=== PATIENT | female | born 1995 | race Caucasian/White ===

== ENCOUNTER 2018-10-23 00:32 | Emergency (ER) | payer OTHER ==
[~2018-10-23] VITALS: Ht 166.4 cm; Wt 158.8 kg
[~2018-10-23 00:32] MED LIST: OSLT75C PO
--- NOTE | 2018-10-23 00:59 | ED Cough/URI ---
General Chief Complaint: Respiratory Problems Stated Complaint: COUGH-HARD TO BREATHE Nursing Triage Note: COUGH X3 DAYS STARTING TO WHEEZE LAST NIGHT. Sepsis Screen: No Definite Risk History of Present Illness Date Seen by Provider: Oct 23, 2018 Time Seen by Provider: 00:59 Initial Comments Patient is a 23-year-old female who presents to the emergency department today complaining of loss of voice and a cough. She has been ill over the last 2-3 days. She complains of a persistent dry hacking cough. She does have a prior history of asthma and has been using her inhaler but this has not been relieving her cough symptoms. No fevers or chills. No upper airway congestion. She also lost her voice and complains of hoarseness. No swelling in the back of the throat. Mild sore throat but this is not a predominant symptom. Allergies and Home Medications Allergies Coded Allergies: strawberry (Unverified Allergy, Mild, 10/23/18) latex (Verified Allergy, Unknown, RASH, 10/23/18) Home Medications Azithromycin 250 Mg Tablet, 250 MG PO DAILY Prescribed by: LINDSAY ROA on 10/23/18 010 Hydrocodone/Acetaminophen 10 Ml Solution, 5 ML PO Q4H PRN for COUGH Prescribed by: LINDSAY ROA on 10/23/18 010 Oseltamivir Phosphate 75 Mg Capsule, 1 CAP PO BID Prescribed by: SARAH CLINE on 04/16/09 0112 Prednisone 50 Mg Tab, 50 MG PO DAILY Prescribed by: LINDSAY ROA on 10/23/18 010 Patient Home Medication List Home Medication List Reviewed: Yes Review of Systems Review of Systems Constitutional: see HPI EENTM: see HPI Respiratory: see HPI Cardiovascular: no symptoms reported Genitourinary: no symptoms reported Musculoskeletal: no symptoms reported Skin: no symptoms reported Hematologic/Lymphatic: No Symptoms Reported All Other Systems Reviewed Negative Unless Noted: Yes Past Gjmbrul-Wouikz-Iipviv Hx Patient Social History Recent Foreign Travel: No Contact w/Someone Who Travel: No Recent Infectious Disease Expo: No Physical Abuse: No Sexual Abuse: No Mistreated: No Fear: No Past Medical History : No Physical Exam Vital Signs - First Documented 10/23/18 00:50 Temp 98.0 Pulse 96 Resp 20 B/P (MAP) 129/79 (96) Pulse Ox 100 O2 Delivery Room Air Capillary Refill : Less Than 3 Seconds Height: 5'5.50" Weight: 350lbs. oz. 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 Skin: normal color Progress/Results/Core Measures Suspected Sepsis Recent Fever Within 48 Hours: No Infection Criteria Present: None New/Unexplained Altered Menta: No Sepsis Screen: No Definite Risk SIRS Temperature:98.0 Pulse: 96 Respiratory Rate: 20 Blood Pressure 129 /79 Mean: 96 Results/Orders My Orders Orders - LINDSAY ROA DO Azithromycin Tablet (Zithromax Tablet) (10/23/18 01:00) Prednisone Tablet (Deltasone Tablet) (10/23/18 01:00) Hydrocodone/Apap 5/325 Tablet (Lortab 5 (10/23/18 01:00) Medications Given in ED Current Medications Medications Dose Ordered Sig/Lisset Route Start Time Stop Time Status Last Admin Dose Admin Acetaminophen/ Hydrocodone Bitart 1 tab ONCE ONCE PO 10/23/18 01:00 10/23/18 01:01 DC 10/23/18 01:13 1 TAB Azithromycin 500 mg ONCE ONCE PO 10/23/18 01:00 10/23/18 01:01 DC 10/23/18 01:13 500 MG Prednisone 50 mg ONCE ONCE PO 10/23/18 01:00 10/23/18 01:01 DC 10/23/18 01:13 50 MG Vital Signs/I&O 10/23/18 00:50 Temp 98.0 Pulse 96 Resp 20 B/P (MAP) 129/79 (96) Pulse Ox 100 O2 Delivery Room Air Capillary Refill : Less Than 3 Seconds Blood Pressure Mean: 96 Progress Note : Time: 01:00 Progress Note Patient was evaluated in the emergency department for a cough. She did have very tight sounding cough when she was coughing. She was not producing sputum. No fevers or chills. The respiratory examination was negative. She does have a history of asthma but her lungs were perfectly clear with good air movement and no increased work of breathing. In the ER, patient was given the first dose of a Z-Isaac, prednisone, and one [place]. She was discharged home with some hydrocodone elixir to use at home for her cough. She will complete the Z-Isaac over the next 4 days and is placed on prednisone for 4 days as well. She does have an albuterol inhaler at home which she states she has plenty of and does not need a refill. She was encouraged to follow up with her primary care doctor or come back to the ER for any new or worsening symptoms. Departure Impression Primary Impression: Bronchitis Additional Impression: Laryngitis Disposition: HOME, SELF-CARE Condition: Improved Departure-Patient Inst. Referrals: NO,LOCAL PHYSICIAN (PCP) Primary Care Physician Scripts Hydrocodone/Acetaminophen (Hydrocodone-Acetamin 5-217/10 ML) 10 Ml Solution 5 ML PO Q4H PRN for COUGH, #120 ML Prov: LINDSAY ROA DO 10/23/18 Azithromycin (Azithromycin) 250 Mg Tablet 250 MG PO DAILY, #4 TAB 0 Refills Prov: LINDSAY ROA DO 10/23/18 Prednisone (Prednisone) 50 Mg Tab 50 MG PO DAILY for 4 Days, #4 TAB Prov: LINDSAY ROA DO 10/23/18 LINDSAY ROA DO Oct 23, 2018 00:59
[2018-10-23] MEDS ORDERED: HYDROcodone/APAP 5 MG/325 MG (LORTAB) TAB PO ONE (01:00)
[2018-10-23] MEDS ORDERED: AZITHROMYCIN 250 MG TAB (ZITHROMAX) PO ONE (01:00)
[2018-10-23] MEDS ORDERED: predniSONE 20 MG TAB PO ONE (01:00)
[2018-10-23] MEDS ORDERED: PRD50T PO (01:05)
[2018-10-23] MEDS ORDERED: AZIT250T12 PO (01:05)
[2018-10-23] MEDS ORDERED: HYDR10SO4 PO (01:06)
[2018-10-23 01:40] VITALS: BP 148/72
== END 2018-10-23 01:40 | disposition home or self-care (01) ==
LOC: EDUNIT# 00:32 → ER FS 00:37
DX: J04.0 Acute laryngitis (principal); J45.909 Unspecified asthma, uncomplicated; Z91.040 Latex allergy status; Z79.52 Long term (current) use of systemic steroids
CPT/HCPCS: 99283

== ENCOUNTER 2019-03-09 23:12 | Emergency (ER) | payer SELFPAY ==
[~2019-03-09] VITALS: Ht 165.1 cm; Wt 145.1 kg
[~2019-03-09 23:12] MED LIST changes: +AZIT250T12 PO; +HYDR10SO4 PO; +PRD50T PO
[2019-03-09] MEDS ORDERED: METOCLOPRAMIDE 10 MG (REGLAN) TAB PO ONE (23:30)
--- NOTE | 2019-03-09 23:37 | ED General ---
General Chief Complaint: Abdominal/GI Problems Stated Complaint: VOMITING, FATIGUED Source of Information: Patient, Family (father) History of Present Illness Date Seen by Provider: Mar 09, 2019 Time Seen by Provider: 23:20 Initial Comments The patient is a morbidly obese pleasant 23-year-old female who presents for evaluation of nausea and vomiting over the last 3 or 4 days. She states that her last menstrual period was on January 21 making her approximately 17 days late. She states there is a chance that she is . She denies any diarrhea, abdominal or back pain, pelvic pain/bleeding/discharge, urinary symptoms, hematemesis, rectal bleeding, chest pain or shortness of breath, dizziness or syncope. She is alert and oriented 4, calm, appears to be in no distress. She has not been previously. Timing/Duration: 3-4 Days Severity: Mild Associated Systoms: Nausea/Vomiting Allergies and Home Medications Allergies Coded Allergies: strawberry (Unverified Allergy, Mild, 10/23/18) latex (Verified Allergy, Unknown, RASH, 10/23/18) Home Medications Azithromycin 250 Mg Tablet, 250 MG PO DAILY Prescribed by: LINDSAY ROA on 10/23/18 010 Hydrocodone/Acetaminophen 10 Ml Solution, 5 ML PO Q4H PRN for COUGH Prescribed by: LINDSAY ROA on 10/23/18 010 Oseltamivir Phosphate 75 Mg Capsule, 1 CAP PO BID Prescribed by: SARAH CLINE on 04/16/09 0112 Prednisone 50 Mg Tab, 50 MG PO DAILY Prescribed by: LINDSAY ROA on 10/23/18 010 Patient Home Medication List Home Medication List Reviewed: Yes Review of Systems Review of Systems Constitutional: no symptoms reported EENTM: no symptoms reported Respiratory: no symptoms reported Cardiovascular: no symptoms reported Gastrointestinal: nausea, vomiting Genitourinary: no symptoms reported Musculoskeletal: no symptoms reported Skin: no symptoms reported Psychiatric/Neurological: No Symptoms Reported Hematologic/Lymphatic: No Symptoms Reported Immunological/Allergic: no symptoms reported All Other Systems Reviewed Negative Unless Noted: Yes Past Wzrcisk-Bkkors-Ewiexe Hx Past Med/Social Hx: Reviewed Nursing Past Med/Soc Hx Patient Social History 2nd Hand Smoke Exposure: No Recent Foreign Travel: No Contact w/Someone Who Travel: No Recent Hopitalizations: No Immunizations Up To Date Tetanus Booster (TDap): Unknown Past Medical History Surgeries: Yes (WISDOM TEETH REMOVAL) Gallbladder Respiratory: Yes Asthma Cardiac: No Neurological: No Genitourinary: No Gastrointestinal: No Musculoskeletal: No Endocrine: No HEENT: No Cancer: No Psychosocial: No Blood Disorders: No Physical Exam Vital Signs Vital Signs - First Documented 03/09/19 23:13 Temp 97.6 Pulse 88 Resp 18 B/P (MAP) 142/78 (99) Pulse Ox 99 O2 Delivery Room Air Capillary Refill : Height, Weight, BMI Height: 5'5.50" Weight: 350lbs. oz. 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 II-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 Norm as Tested Skin: Normal Color, Warm/Dry Progress/Results/Core Measures Suspected Sepsis SIRS Temperature: Pulse: Respiratory Rate: Blood Pressure / Mean: Results/Orders Lab Results Laboratory Tests Test 03/09/19 23:47 Range/Units Urine Color YELLOW Urine Clarity SLT CLOUDY Urine pH 6.0 5-9 Urine Specific Dorsey 1.020 1.016-1.022 Urine Protein NEGATIVE NEGATIVE Urine Glucose (UA) NEGATIVE NEGATIVE Urine Ketones NEGATIVE NEGATIVE Urine Nitrite NEGATIVE NEGATIVE Urine Bilirubin NEGATIVE NEGATIVE Urine Urobilinogen 1.0 NORMAL MG/DL Urine Leukocyte Esterase 3+ H NEGATIVE Urine RBC (Auto) TRACE H NEGATIVE Urine RBC 0-2 /HPF Urine WBC 50-100 H /HPF Urine Squamous Epithelial Cells 2-5 /HPF Urine Crystals NONE /LPF Urine Bacteria MODERATE H /HPF Urine Casts NONE /LPF Urine Mucus NONE /LPF Urine Trichomonas FEW H /HPF Urine Culture Indicated YES Urine Test NEGATIVE NEGATIVE My Orders Orders - NASH ALVAREZ DO Ua Culture If Indicated (03/09/19 23:14) Hcg,Qualitative Urine (03/09/19 23:14) Metoclopramide Tablet (Reglan Tablet) (03/09/19 23:30) Urine Culture (03/09/19 23:47) Vital Signs/I&O 03/09/19 23:13 Temp 97.6 Pulse 88 Resp 18 B/P (MAP) 142/78 (99) Pulse Ox 99 O2 Delivery Room Air Capillary Refill : Progress Note : Progress Note @0014 - Patient updated on urinalysis results which show an acute UTI as well as Trichomonas. The patient will be sent home with a prescription for Bactrim and will be given 2 g of Flagyl here. Advised the patient to follow up with her PCP in the next 2-3 days and to return for new or worsening symptoms. The patient expresses verbal understanding and agreement with the plan and is stable for discharge. Departure Impression Primary Impression: Acute UTI Additional Impression: Trichomonas infection Disposition: 01 HOME, SELF-CARE Condition: Stable Departure-Patient Inst. Referrals: MORENITA GAMING MD (PCP) Primary Care Physician Patient Instructions: Urinary Tract Infections in Adults, Trichomoniasis (DC), STD Prevention Add. Discharge Instructions: Take the prescribed medicine as directed. Return to the ER for new or worsening symptoms. Follow-up with your doctor in the next 2-3 days. Scripts Sulfamethoxazole/Trimethoprim (Bactrim Ds Tablet) 1 Each Tablet 1 EACH PO BID for 3 Days, TAB Prov: NASH ALVAREZ DO 03/10/19 NASH ALVAREZ DO Mar 09, 2019 23:37
[2019-03-10 00:09] LABS: CLARITY,URINE SLT CLOUDY; COLOR,URINE YELLOW; GLUCOSE, URINE (UA) NEGATIVE (NEGATIVE); PROTEIN,URINE NEGATIVE (NEGATIVE)
[2019-03-10 00:10] LABS: BACTERIA,URINE MODERATE /HPF; BILIRUBIN,URINE NEGATIVE (NEGATIVE); KETONES,URINE NEGATIVE (NEGATIVE); LEUKOCYTE ESTERASE ,URINE 3+ (NEGATIVE); NITRITE,URINE NEGATIVE (NEGATIVE); RBC,URINE 0-2 /HPF; WBC,URINE 50-100 /HPF
[2019-03-10 00:11] LABS: TRICHOMONAS,URINE FEW /HPF
[2019-03-10] MEDS ORDERED: SULF1TAB35 PO (00:18)
[2019-03-10] MEDS ORDERED: ONDANSETRON 4 MG (ZOFRAN) ORAL DISSOLVE TAB PO STA (00:19)
[2019-03-10 00:24] VITALS: BP 142/78
[2019-03-10] MEDS ORDERED: TRIM/SULFAMETH 160/800 (SEPTRA DS) TAB PO ONE (00:30)
[2019-03-10] MEDS ORDERED: metroNIDAZOLE 500 MG (FLAGYL) TAB PO ONE (00:30)
--- OUTSIDE RECORDS SUMMARY | 2019-03-10 17:18 | XMS REPORT | Continuity of Care Document ---
Author Organization Unknown Address Unknown Allergies Active Description Code Type Severity Reaction Onset Reported/Identified Relationship to Patient Clinical Status Yes latex [id number] Drug Allergy Unknown RASH 10/23/2018 Yes strawberry [id number] Drug Allergy Mild N/A 10/23/2018 Medications There is no data. 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 10/25/2018 ROA DO LINDSAY L Ot Z91.040 LATEX ALLERGY STATUS 10/29/2018 ROA DO LINDSAY L Ot J04.0 ACUTE LARYNGITIS 10/29/2018 ROA DO LINDSAY L Ot J45.909 UNSPECIFIED ASTHMA, UNCOMPLICATED 10/29/2018 ROA DO LINDSAY L Ot R05 COUGH 10/29/2018 ROA DO LINDSAY L Ot 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 Results Test Result Range Urine beta human chorionic gonadotropin (hCG) measurement - 03/09/19 23:47 Urine beta human chorionic gonadotropin (hCG) measurement NEGATIVE NEGATIVE Complete urinalysis with reflex to culture - 03/09/19 23:47 Urine color determination YELLOW NRG Urine clarity determination SLT CLOUDY NRG Urine pH measurement by test strip 6.0 5-9 Specific gravity of urine by test strip 1.020 1.016-1.022 Urine protein assay by test strip, semi-quantitative NEGATIVE NEGATIVE Urine glucose detection by automated test strip NEGATIVE NEGATIVE Erythrocytes detection in urine sediment by light microscopy TRACE NEGATIVE Urine ketones detection by automated test strip NEGATIVE NEGATIVE Urine nitrite detection by test strip NEGATIVE NEGATIVE Urine total bilirubin detection by test strip NEGATIVE NEGATIVE Urine urobilinogen measurement by automated test strip (mass/volume) 1.0 mg/dL NORMAL Urine leukocyte esterase detection by dipstick 3+ NEGATIVE Automated urine sediment erythrocyte count by microscopy (number/high power field) [HPF] NRG Automated urine sediment leukocyte count by microscopy (number/high power field) [HPF] NRG Bacteria detection in urine sediment by light microscopy MODERATE NRG Squamous epithelial cells detection in urine sediment by light microscopy 2-5 NRG Crystals detection in urine sediment by light microscopy NONE NRG Casts detection in urine sediment by light microscopy NONE NRG Mucus detection in urine sediment by light microscopy NONE NRG Complete urinalysis with reflex to culture YES NRG Urine Trichomonas species detection by light microscopy FEW NRG Encounters ACCT No. Visit Date/Time Discharge Status Pt. Type Provider Facility Loc./Unit Complaint [id number] 10/23/2018 00:37:00 10/23/2018 01:40:00 DIS Outpatient LINDSAY ROA DO [facility] ER FS COUGH-HARD TO BREATHE [id number] 03/09/2019 23:53:00 Document Registration
== END 2019-03-10 00:24 | disposition home or self-care (01) ==
LOC: EDUNIT# 23:12 → ER FS 23:13
DX: A59.09 Other urogenital trichomoniasis (principal); E66.01 Morbid (severe) obesity due to excess calories; J45.909 Unspecified asthma, uncomplicated; Z91.040 Latex allergy status; Z68.43 Body mass index [BMI] 50.0-59.9, adult
CPT/HCPCS: 81000; 84703; 87088; 99283

== ENCOUNTER 2019-04-13 12:17 | Emergency (ER) | payer OTHER ==
[~2019-04-13] VITALS: Ht 167.6 cm; Wt 153.3 kg
[~2019-04-13 12:17] MED LIST changes: +SULF1TAB35 PO
--- NOTE | 2019-04-13 13:16 | ED Lower Extremity ---
General Chief Complaint: Laceration Stated Complaint: RT TOE LAC Nursing Triage Note: PT DROPPED A MIRROR ON HER RIGHT FOOT. LACERATION TO THE ANTERIOR SIDE OF HER RIGHT 5TH TOE. BLEEDING CONTROLLED. Nursing Sepsis Screen: No Definite Risk History of Present Illness Date Seen by Provider: Apr 13, 2019 Time Seen by Provider: 12:55 Initial Comments The patient is a pleasant 23-year-old female who presents for evaluation of a laceration to the right fifth toe. She states that she was moving a mirror when she dropped it and it cut the toe. Upon arrival the bleeding has stopped and the laceration is on the top medial portion of the toe. It does not gape when she walks on it. She has no other injuries or complaints and does not believe that she fractured her toe and does not want imaging. She is up-to-date with tetanus already. She is alert and oriented 4, calm, appears to be in no distress. Onset: just prior to arrival Pain/Injury Location: right 5th toe Method of Injury: direct blow Modifying Factors: Improves With Movement (of toe makes it slightly worse) Allergies and Home Medications Allergies Coded Allergies: strawberry (Unverified Allergy, Mild, 10/23/18) latex (Verified Allergy, Unknown, RASH, 10/23/18) Home Medications Azithromycin 250 Mg Tablet, 250 MG PO DAILY Prescribed by: LINDSAY ROA on 10/23/18104 Hydrocodone/Acetaminophen 10 Ml Solution, 5 ML PO Q4H PRN for COUGH Prescribed by: LINDSAY ROA on 10/23/18105 Oseltamivir Phosphate 75 Mg Capsule, 1 CAP PO BID Prescribed by: SARAH CLINE on 04/16/09 0112 Prednisone 50 Mg Tab, 50 MG PO DAILY Prescribed by: LINDSAY ROA on 10/23/18104 Sulfamethoxazole/Trimethoprim 1 Each Tablet, 1 EACH PO BID Prescribed by: NASH ALVAREZ on 03/10/19 0018 Patient Home Medication List Home Medication List Reviewed: Yes Review of Systems Constitutional: no symptoms reported EENTM: no symptoms reported Respiratory: no symptoms reported Cardiovascular: no symptoms reported Gastrointestinal: no symptoms reported Genitourinary: no symptoms reported : No Musculoskeletal: other (laceration to right fifth toe) Skin: no symptoms reported Psychiatric/Neurological: No Symptoms Reported All Other Systems Reviewed Negative Unless Noted: Yes Past Kuwfrmy-Eybvkf-Xcgvtd Hx Past Med/Social Hx: Reviewed Nursing Past Med/Soc Hx Patient Social History Alcohol Use: Denies Use Recreational Drug Use: No Type Used: Cigarettes 2nd Hand Smoke Exposure: No Recent Foreign Travel: No Contact w/Someone Who Travel: No Recent Infectious Disease Expo: No Recent Hopitalizations: No Physical Abuse: No Sexual Abuse: No Mistreated: No Fear: No Immunizations Up To Date Tetanus Booster (TDap): Unknown Past Medical History Surgeries: Yes (WISDOM TEETH REMOVAL) Gallbladder Respiratory: Yes Asthma Cardiac: No Neurological: No Genitourinary: No Gastrointestinal: No Musculoskeletal: No Endocrine: No HEENT: No Cancer: No Psychosocial: No Blood Disorders: No Physical Exam Vital Signs Vital Signs - First Documented 04/13/19 12:27 Temp 97.4 Pulse 88 Resp 20 B/P (MAP) 150/87 (108) Pulse Ox 98 O2 Delivery Room Air Capillary Refill : Less Than 3 Seconds Height, Weight, BMI Height: 5'6.00" Weight: 338lbs. 0oz. 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 as tested, no motor/sensory deficits, alert, normal mood/affect, oriented x 3 Skin: normal color, warm/dry Lymphatic: no adenopathy Procedures/Interventions Wound Location: Lower Extremities (right 5th toe) Other Wound Location right 5th toe on top/medial aspect Wound Length (cm): 1.5 Wound's Depth, Shape: superficial Wound Explored: clean Irrigated w/ Saline (ccs): 500 Wound Debrided: none Other Closure Supply: Steri Strip 1/4", Wound Adhesive Progress Patient tolerated the repair with skin adhesive and Steri-Strips very well Progress/Results/Core Measures Results/Orders Vital Signs/I&O 04/13/19 12:27 Temp 97.4 Pulse 88 Resp 20 B/P (MAP) 150/87 (108) Pulse Ox 98 O2 Delivery Room Air Blood Pressure Mean: 108 Departure Impression Primary Impression: Laceration of toe of right foot Disposition: 01 HOME, SELF-CARE Condition: Stable Departure-Patient Inst. Decision time for Depature: 13:35 Referrals: MORENITA GAMING MD (PCP/Family) Primary Care Physician Patient Instructions: Laceration Repair With Glue (DC) Add. Discharge Instructions: Follow-up with your doctor in the next 2-3 days for wound check. Return to the ER for new or worsening symptoms. NASH ALVAREZ DO Apr 13, 2019 13:16
[2019-04-13 13:42] VITALS: BP 130/87
== END 2019-04-13 13:42 | disposition home or self-care (01) ==
LOC: EDUNIT# 12:17 → ER FS 12:18
DX: S91.114A Laceration without foreign body of right lesser toe(s) without damage to nail, initial encounter (principal); J45.909 Unspecified asthma, uncomplicated; Z91.040 Latex allergy status; Z79.52 Long term (current) use of systemic steroids; W25.XXXA Contact with sharp glass, initial encounter
CPT/HCPCS: 99282

== ENCOUNTER 2019-04-17 23:55 | Emergency (ER) | payer OTHER ==
[~2019-04-17] VITALS: Ht 166.4 cm; Wt 151.5 kg
[2019-04-18] MEDS ORDERED: KETOROLAC 60 MG/2 ML VIAL IM STA (00:12)
[2019-04-18] MEDS ORDERED: ORPHENADRINE 60 MG/2 ML (NORFLEX) AMP IM STA (00:12)
--- NOTE | 2019-04-18 00:21 | ED Back Pain ---
General Chief Complaint: Back Problems Stated Complaint: BACK PAIN Nursing Triage Note: PT. WAS MOVING FURNITURE AND NOW HER BACK HURTS. PT. STATED SHE HAS A HX OF BACK PAIN. NO NUMBNESS OR TINGLING. Nursing Sepsis Screen: No Definite Risk Source of Information: Patient History of Present Illness Date Seen by Provider: Apr 17, 2019 Time Seen by Provider: 23:57 Initial Comments 23-year-old female presenting with complaints of back pain. She has a history of back pain for the last several years. She cannot remember what originally started her back pain. She states that she was moving a dresser this and has had increased back pain since Wednesday. She has pain radiating down her back into her legs. She denies any numbness or tingling. She has no loss of bowel or bladder control. She has tried acetaminophen and ibuprofen with little to no relief. She follows with Dr. Gaming in the clinic and has seen him about her back pain in the past but has not gone in about this new back pain since it just started Wednesday. She had more pain tonight and was supposed to go to work but could not due to the pain so she came to the ED Allergies and Home Medications Allergies Coded Allergies: strawberry (Unverified Allergy, Mild, 10/23/18) latex (Verified Allergy, Unknown, RASH, 10/23/18) Home Medications Azithromycin 250 Mg Tablet, 250 MG PO DAILY Prescribed by: LINDSAY ROA on 10/23/18104 Baclofen 10 Mg Tablet, 10 MG PO TID PRN for MUSCLE SPASMS Prescribed by: GUY ARREDONDO on 04/18/19206 Hydrocodone Bit/Acetaminophen 1 Tab Tab, 1 EACH PO Q6H PRN for PAIN-MODERATE Prescribed by: GUY ARREDONDO on 04/18/19206 Hydrocodone/Acetaminophen 10 Ml Solution, 5 ML PO Q4H PRN for COUGH Prescribed by: LINDSAY ROA on 10/23/18105 Ibuprofen 800 Mg Tablet, 800 MG PO Q8H PRN for PAIN Prescribed by: GUY ARREDONDO on 04/18/19206 Oseltamivir Phosphate 75 Mg Capsule, 1 CAP PO BID Prescribed by: SARAH CLINE on 04/16/09 011 Prednisone 50 Mg Tab, 50 MG PO DAILY Prescribed by: LINDSAY ROA on 10/23/18104 Sulfamethoxazole/Trimethoprim 1 Each Tablet, 1 EACH PO BID Prescribed by: NASH ALVAREZ on 03/10/19 0018 Patient Home Medication List Home Medication List Reviewed: Yes Review of Systems Constitutional: No chills, No fever, No malaise EENTM: no symptoms reported Respiratory: no symptoms reported Cardiovascular: no symptoms reported Gastrointestinal: no symptoms reported Genitourinary: other (LMP was in January but has had negative test at home.) Musculoskeletal: see HPI, back pain; No muscle weakness Skin: no symptoms reported Psychiatric/Neurological: Denies Numbness, Denies Paresthesia Past Mteyonx-Xvkbpj-Xkpdfk Hx Past Med/Social Hx: Reviewed Nursing Past Med/Soc Hx Patient Social History Type Used: Cigarettes 2nd Hand Smoke Exposure: No Recent Foreign Travel: No Contact w/Someone Who Travel: No Recent Infectious Disease Expo: No Recent Hopitalizations: No Immunizations Up To Date Tetanus Booster (TDap): Unknown Past Medical History Surgeries: Yes (WISDOM TEETH REMOVAL) Gallbladder Respiratory: Yes Asthma Cardiac: No Neurological: No Genitourinary: No Gastrointestinal: No Musculoskeletal: No Endocrine: No HEENT: No Cancer: No Psychosocial: No Blood Disorders: No Physical Exam Vital Signs Vital Signs - First Documented 04/18/19 00:07 Temp 97.9 Pulse 90 Resp 16 B/P (MAP) 117/72 (87) Pulse Ox 100 O2 Delivery Room Air Capillary Refill : Less Than 3 Seconds Height, Weight, BMI Height: 5'5.50" Weight: 334lbs. 0oz. 151.292168np; BMI Method:Stated General Appearance: No Apparent Distress, WD/WN HEENT: PERRL/EOMI, Normal ENT Inspection, Pharynx Normal Neck: Normal Inspection, Non Tender, Supple Cardiovascular: Regular Rate, Rhythm, Normal Peripheral Pulses Respiratory: Chest Non Tender, Lungs Clear, Normal Breath Sounds, No Accessory Muscle Use, No Respiratory Distress Back: Decreased Range of Motion, Muscle Spasm, Vertebral Tenderness (lower thoracic and lumbar spine), Other (pain with SLR bilaterally worse on right. 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; No Abnormal Gait Skin: Normal Color, Warm/Dry Progress/Results/Core Measures Results/Orders My Orders Orders - GUY ARREDONDO MD Ua Culture If Indicated (04/18/19 00:01) Hcg,Qualitative Urine (04/18/19 00:01) Orphenadrine Injection (Norflex Injectio (04/18/19 00:12) Ketorolac Injection (Toradol Injection) (04/18/19 00:12) Ct Thoracic/Lumbar Spine Wo (04/18/19 00:12) Vital Signs/I&O 04/18/19 04/18/19 00:07 02:09 Temp 97.9 97.9 Pulse 90 90 Resp 16 16 B/P (MAP) 117/72 (87) 117/72 (87) Pulse Ox 100 100 O2 Delivery Room Air Room Air Blood Pressure Mean: 87 Progress Progress Note #1: Progress Note Try toradol and norflex for pain. Check CT Thoracic and Lumbar spine. Check UA with Urine test. Progress Note #2: Progress Note CT does not show any acute fracture or dislocation for spine. Treat s ymptomatically and have her check with Dr. Gaming for continued concerns/problems Counseled that the Thyroid was prominent on CT and showed some lymph nodes as well. Encouraged to get ultrasound or testing with pcp Diagnostic Imaging Diagonstic Imaging: CT Plain Films/CT/US/NM/MRI: other (Thoracic and Lumbar spine) Comments Impression 1. Images through this. This didn't demonstrate multiple lymph nodes beneath the thyroid gland. The thyroid gland is mildly prominent. Nonemergent thyroid ultrasound could be performed for further evaluation. Impression of the lumbar spine 1. Somewhat limited due to body habitus but unremarkable appearing Lumbar spine. Read by Dr. Nash Folres MD at 0133 AM and fax at 0143 AM. Reviewed: Reviewed Night [facility] Study Departure Impression Primary Impression: Strain of thoracic region Qualified Codes: S29.019A - Strain of muscle and tendon of unspecified wall of thorax, initial encounter Additional Impression: Acute lumbar myofascial strain Qualified Codes: S39.012A - Strain of muscle, fascia and tendon of lower back, initial encounter Disposition: HOME, SELF-CARE Condition: Stable Departure-Patient Inst. Decision time for Depature: 01:57 Referrals: MORENITA GAMING MD (PCP/Family) Primary Care Physician Patient Instructions: Lumbar Muscle Strain (DC), Low Back Pain in Adults, Upper Back Pain (DC), Radiculopathy (DC) Add. Discharge Instructions: Try alternating ice and heat to your back to help with pain and inflammation. Use the muscle relaxers and anti-inflammatories to help with your back pain. Check with clinic for continued problems/concerns. The radiologist noted that your thyroid seemed to be slightly prominent on your CT scan so they recommended a possible Thyroid ultrasound with your regular provider to evaluate this further. You can call Dr. Gaming about this and have him see if that is something he wants to schedule or how he would like to manage that. All discharge instructions reviewed with patient and/or family. Voiced understanding. Scripts Hydrocodone Bit/Acetaminophen (Hydrocodone/Acetaminophen 5/325mg Tablet) 1 Tab Tab 1 EACH PO Q6H PRN for PAIN-MODERATE MDD 10 for 3 Days, #12 TAB 0 Refills Prov: GUY ARREDONDO MD 04/18/19 Ibuprofen (Ibuprofen) 800 Mg Tablet 800 MG PO Q8H PRN for PAIN for 10 Days, #30 TAB 0 Refills Prov: GUY ARREDONDO MD 04/18/19 Baclofen (Baclofen) 10 Mg Tablet 10 MG PO TID PRN for MUSCLE SPASMS for 10 Days, #30 TAB 0 Refills Prov: GUY ARREDONDO MD 04/18/19 Work/School Note: Work Release Form Date Seen in the Emergency Department: Apr 18, 2019 Return to Work: Apr 20, 2019 Restrictions: No Restrictions GUY ARREDONDO MD Apr 18, 2019 00:21
[2019-04-18] MEDS ORDERED: ACHD5005 PO (02:07)
[2019-04-18] MEDS ORDERED: BACL10TA PO (02:07)
[2019-04-18] MEDS ORDERED: IBUP-1780 PO (02:07)
[2019-04-18 02:09] VITALS: BP 117/72
[2019-04-18 06:25] LABS: CLARITY,URINE SLT CLOUDY; COLOR,URINE YELLOW; GLUCOSE, URINE (UA) NEGATIVE (NEGATIVE); PH,URINE 5.5 (5-9); PROTEIN,URINE NEGATIVE (NEGATIVE)
[2019-04-18 06:26] LABS: BACTERIA,URINE MODERATE /HPF; BILIRUBIN,URINE NEGATIVE (NEGATIVE); HCG,QUALITATIVE URINE NEGATIVE (NEGATIVE); KETONES,URINE TRACE (NEGATIVE); LEUKOCYTE ESTERASE ,URINE NEGATIVE (NEGATIVE); NITRITE,URINE NEGATIVE (NEGATIVE); RBC,URINE 0-2 /HPF; SQUAMOUS EPITHELIAL CELL,UR 25-50 /HPF; UROBILINOGEN,URINE 0.2 MG/DL (NORMAL); WBC,URINE 0-2 /HPF
--- NOTE | 2019-04-18 08:38 | Diagnostic Imaging Report ---
PROCEDURE: CT thoracic and lumbar spine without contrast. TECHNIQUE: Multiple contiguous axial images were obtained through the thoracic and lumbar spine without the use of intravenous contrast. Sagittal and coronal reformations were then performed. INDICATION: Back pain. FINDINGS: No comparison available. The alignment of the thoracic spine is normal. Vertebral body heights are normal. Disc spaces are normal. The alignment of the lumbar spine is also normal. Vertebral body heights are normal. Disc spaces are normal. The facet joints in the thoracolumbar spine are normal. No acute fracture is seen in the thoracic or lumbar spine. Thyroid gland is mildly enlarged. No soft tissue abnormality is seen otherwise. Gallbladder has been removed. No osseous spinal canal stenosis is seen. IMPRESSION: 1. Normal thoracic and lumbar spine without acute fracture. Dictated by: Dictated on workstation # [id number]
== END 2019-04-18 02:10 | disposition home or self-care (01) ==
LOC: EDUNIT# 23:55 → ER FS 23:57
DX: S39.012A Strain of muscle, fascia and tendon of lower back, initial encounter (principal); S29.019A Strain of muscle and tendon of unspecified wall of thorax, initial encounter; J45.909 Unspecified asthma, uncomplicated; Z91.040 Latex allergy status; Z91.018 Allergy to other foods; Z79.52 Long term (current) use of systemic steroids; X50.1XXA Overexertion from prolonged static or awkward postures, initial encounter
CPT/HCPCS: 72128; 72131; 81000; 84703

== ENCOUNTER 2019-07-29 14:04 | Emergency (ER) | payer OTHER ==
[~2019-07-29] VITALS: Ht 168.5 cm; Wt 166.6 kg
[~2019-07-29 14:04] MED LIST changes: +ACHD5005 PO; +BACL10TA PO; +IBUP-1780 PO
--- NOTE | 2019-07-29 15:11 | ED Cough/URI ---
General Chief Complaint: Cough/Cold/Flu Symptoms Stated Complaint: CHEST TIGHTNESS History of Present Illness Date Seen by Provider: Jul 29, 2019 Time Seen by Provider: 15:07 Initial Comments Morbidly obese 23-year-old female felt fine yesterday today she noted head congestion some discomfort in left ear little feeling of tightness in chest throat drainage some diarrhea no known exposure to illness she reports hx asthma but is not wheezing or with any apparent difficulty breathing Allergies and Home Medications Allergies Coded Allergies: strawberry (Unverified Allergy, Mild, 10/23/18) latex (Verified Allergy, Unknown, RASH, 10/23/18) Home Medications Azithromycin 250 Mg Tablet, 250 MG PO DAILY Prescribed by: LINDSAY ROA on 10/23/18104 Baclofen 10 Mg Tablet, 10 MG PO TID PRN for MUSCLE SPASMS Prescribed by: GUY ARREDONDO on 04/18/19206 Hydrocodone Bit/Acetaminophen 1 Tab Tab, 1 EACH PO Q6H PRN for PAIN-MODERATE Prescribed by: GUY ARREDONDO on 04/18/19206 Hydrocodone/Acetaminophen 10 Ml Solution, 5 ML PO Q4H PRN for COUGH Prescribed by: LINDSAY ROA on 10/23/18105 Ibuprofen 800 Mg Tablet, 800 MG PO Q8H PRN for PAIN Prescribed by: GUY ARREDONDO on 04/18/19206 Oseltamivir Phosphate 75 Mg Capsule, 1 CAP PO BID Prescribed by: SARAH CLINE on 04/16/09 011 Prednisone 50 Mg Tab, 50 MG PO DAILY Prescribed by: LINDSAY ROA on 10/23/18104 Sulfamethoxazole/Trimethoprim 1 Each Tablet, 1 EACH PO BID Prescribed by: NASH ALVAREZ on 03/10/19 0018 Patient Home Medication List Home Medication List Reviewed: Yes Review of Systems Review of Systems Constitutional: No fever EENTM: ear pain, nose congestion Respiratory: No cough, No wheezing Cardiovascular: no symptoms reported Gastrointestinal: diarrhea Genitourinary: no symptoms reported Past Ualavrc-Jgqavu-Eknadn Hx Patient Social History Type Used: Cigarettes 2nd Hand Smoke Exposure: No Recent Hopitalizations: No Immunizations Up To Date Tetanus Booster (TDap): Unknown Past Medical History Surgeries: Yes (WISDOM TEETH REMOVAL) Gallbladder Respiratory: Yes Asthma Cardiac: No Neurological: No Genitourinary: No Gastrointestinal: No Musculoskeletal: No Endocrine: No HEENT: No Cancer: No Psychosocial: No Blood Disorders: No Physical Exam Vital Signs - First Documented 07/29/19 14:10 O2 Delivery Room Air Capillary Refill : Height: 5'5.50" Weight: 334lbs. 0oz. 151.797951iy; BMI Method:Stated General Appearance: no apparent distress Eyes: Bilateral Eye PERRL, Bilateral Eye EOMI HEENT: TMs normal, pharynx normal Neck: supple Respiratory: lungs clear, normal breath sounds, no respiratory distress, no accessory muscle use Cardiovascular: regular rate, rhythm Gastrointestinal: normal bowel sounds, non tender, soft Progress/Results/Core Measures Suspected Sepsis SIRS Temperature: Pulse: Respiratory Rate: Blood Pressure / Mean: Results/Orders Micro Results Microbiology 07/29/19 Influenza Types A,B Antigen (SANDI) - Final, Complete My Orders Orders - RADHA ALEJANDRO MD Influenza A And B Antigens (07/29/19 14:47) Vital Signs/I&O 07/29/19 14:10 O2 Delivery Room Air Capillary Refill : Progress Note : Progress Note influenza A and B neg Departure Impression Primary Impression: Upper respiratory infection Qualified Codes: J06.9 - Acute upper respiratory infection, unspecified Disposition: HOME, SELF-CARE Condition: Stable Departure-Patient Inst. Decision time for Depature: 15:49 Referrals: MORENITA GAMING MD (PCP/Family) Primary Care Physician Patient Instructions: Viral Upper Respiratory Infection, Adult (DC) Scripts Azithromycin (Azithromycin) 250 Mg Tablet 250 MG PO UD, #6 TAB TAKE 2 TABLETS ON DAY ONE THEN TAKE 1 TABLET DAILY FOR FOUR MORE DAYS Prov: RADHA ALEJANDRO MD 07/29/19 RADHA ALEJANDRO MD Jul 29, 2019 15:11 POS
[2019-07-29] MEDS ORDERED: AZIT250T12 PO (15:50)
[2019-07-29 15:54] VITALS: BP 109/66
--- OUTSIDE RECORDS SUMMARY | 2019-08-24 12:18 | XMS REPORT | Continuity of Care Document ---
Demographics Preferred Language Unknown Marital Status Unknown Jain Affiliation Unknown Race Unknown Ethnic Group Unknown Author Organization Unknown Address Unknown Phone Unavailable Allergies Active Description Code Type Severity Reaction Onset Reported/Identified Relationship to Patient Clinical Status Yes latex [id number] Drug Allergy Unknown RASH 10/23/2018 Yes strawberry [id number] Drug Allerg y Mild N/A 10/23/2018 Medications There is no data. Problems Date Dx Coded Attending Type Code Diagnosis Diagnosed By 10/23/2018 LINDSAY ROA DO Ot J04 .0 ACUTE LARYNGITIS 10/23/2018 LINDSAY ROA DO L Ot J45.909 UNSPECIFIED ASTHMA, UNCOMPLICATED 10/23/2018 CORA ROA DOIAN L Ot R05 COUGH 10/23/2018 LINDSAY ROA DO L Ot Z79.52 PRISON (CURRENT) USE OF SYSTEMIC STER 10/23/2018 CORA ROA DOIAN L Ot Z91.040 LATEX ALLERGY STATUS 10/25/2018 CORA ROA DOIAN L Ot J04 .0 ACUTE LARYNGITIS 10/25/2018 CORA ROA DOIAN L Ot J45.909 UNSPECIFIED ASTHMA, UNCOMPLICATED 10/25/2018 COAR ROA DOIAN L Ot R05 COUGH 10/25/2018 CORA ROA DOIAN L Ot Z79.52 PRISON (CURRENT) USE OF SYSTEMIC STER 10/25/2018 CRISPIN DOCORALINDSAY L Ot Z91.040 LATEX ALLERGY STATUS 10/29/2018 ROA DOCORALINDSAY L Ot J04 .0 ACUTE LARYNGITIS 10/29/2018 ROA DOCORALINDSAY L Ot J45.909 UNSPECIFIED ASTHMA, UNCOMPLICATED 10/29/2018 ROA DO LINDSAY L Ot R05 COUGH 10/29/2018 ROA DOCORALINDSAY L Ot Z79.52 IMPLEMENTATION ARCHITECT (CURRENT) USE OF SYSTEMIC STER 10/29/2018 CRISPIN DOCORALINDSAY L Ot Z91.040 LATEX ALLERGY STATUS 01/12/2019 ROA DOCORALINDSAY L Ot J04 .0 ACUTE LARYNGITIS 01/12/2019 ROA DOCORALINDSAY L Ot J45.909 UNSPECIFIED ASTHMA, UNCOMPLICATED 01/12/2019 ROA DO, LINDSAY L Ot R05 COUGH 01/12/2019 ROA LINDSAY RAHMAN Ot Z79.52 IMPLEMENTATION ARCHITECT (CURRENT) USE OF SYSTEMIC STER 01/12/2019 CRISPIN LINDSAY RAHMAN Ot Z91.040 LATEX ALLERGY STATUS 03/10/2019 KIM CAO DO Ot A59. 09 OTHER UROGENITAL TRICHOMONIASIS 03/10/2019 KIM CAO DO Ot E66. 01 MORBID (SEVERE) OBESITY DUE TO EXCESS CA 03/10/2019 KIM CAO DO Ot J45.909 UNSPECIFIED ASTHMA, UNCOMPLICATED 03/10/2019 KIM CAO DO Ot R11. 2 NAUSEA WITH VOMITING, UNSPECIFIED 03/10/2019 KIM CAO DO Ot Z68. 43 BODY MASS INDEX (BMI) 50-59.9, ADULT 03/10/2019 KIM CAO DO Ot Z91.040 LATEX ALLERGY STATUS 03/16/2019 KIM CAO DO Ot A59. 09 OTHER UROGENITAL TRICHOMONIASIS 03/16/2019 KIM CAO DO Ot E66. 01 MORBID (SEVERE) OBESITY DUE TO EXCESS CA 03/16/2019 KIM CAO DO Ot J45.909 UNSPECIFIED ASTHMA, UNCOMPLICATED 03/16/2019 KIM CAO DO Ot R11. 2 NAUSEA WITH VOMITING, UNSPECIFIED 03/16/2019 KIM CAO DO Ot Z68. 43 BODY MASS INDEX (BMI) 50-59.9, ADULT 03/16/2019 KIM CAO DO Ot Z91.040 LATEX ALLERGY STATUS 04/13/2019 KIM CAO DO Ot J45.909 UNSPECIFIED ASTHMA, UNCOMPLICATED 04/13/2019 KIM CAO DO Ot S91.114A LAC W/O FB OF RIGHT LESSER TOE(S) W/O DA 04/13/2019 KIM CAO DO Ot W25.XXXA CONTACT WITH SHARP GLASS, INITIAL ENCOUN 04/13/2019 KIM CAO DO Ot Z79. 52 PRISON (CURRENT) USE OF SYSTEMIC STER 04/13/2019 KIM CAO DO Ot Z91.040 LATEX ALLERGY STATUS 04/17/2019 KIM CAO DO Ot J45.909 UNSPECIFIED ASTHMA, UNCOMPLICATED 04/17/2019 KIM CAO DO Ot S91.114A LAC W/O FB OF RIGHT LESSER TOE(S) W/O DA 04/17/2019 KIM CAO DO Ot W25.XXXA CONTACT WITH SHARP GLASS, INITIAL ENCOUN 04/17/2019 KIM CAO DO Ot Z79. 52 PRISON (CURRENT) USE OF SYSTEMIC STER 04/17/2019 KIM CAO DO Ot Z91.040 LATEX ALLERGY STATUS 04/17/2019 KIM CAO DO Ot J45.909 UNSPECIFIED ASTHMA, UNCOMPLICATED 04/17/2019 KMI CAO DO Ot S91.114A LAC W/O FB OF RIGHT LESSER TOE(S) W/O DA 04/17/2019 KIM CAO DO Ot W25.XXXA CONTACT WITH SHARP GLASS, INITIAL ENCOUN 04/17/2019 KIM CAO DO Ot Z79. 52 PRISON (CURRENT) USE OF SYSTEMIC STER 04/17/2019 KIM CAO DO Ot Z91.040 LATEX ALLERGY STATUS 04/18/2019 GUY ARREDONDO MD, Ot J45.9 09 UNSPECIFIED ASTHMA, UNCOMPLICATED 04/18/2019 GUY ARREDONDO MD, Ot M54.5 LOW BACK PAIN 04/18/2019 GUY ARREDONDO MD, Ot S29.019A STRAIN OF MUSCLE AND TENDON OF UNSP WALL 04/18/2019 GUY ARREDONDO MD, Ot S39.012A STRAIN OF MUSCLE, FASCIA AND TENDON OF L 04/18/2019 GUY ARREDONDO MD, Ot X50.1XXA OVEREXERTION FROM PROLONGED STATIC OR AW 04/18/2019 GUY ARREDONDO MD, Ot Z79.5 2 IMPLEMENTATION ARCHITECT (CURRENT) USE OF SYSTEMIC STER 04/18/2019 GUY ARREDONDO MD Ot Z91.0 18 ALLERGY TO OTHER FOODS 04/18/2019 GUY ARREDONDO MD Ot Z91.0 40 LATEX ALLERGY STATUS 04/21/2019 GUY ARREDONDO MD, Ot J45.9 09 UNSPECIFIED ASTHMA, UNCOMPLICATED 04/21/2019 GUY ARREDONDO MD, Ot M54.5 LOW BACK PAIN 04/21/2019 GUY ARREDONDO MD, Ot S29.019A STRAIN OF MUSCLE AND TENDON OF UNSP WALL 04/21/2019 GUY ARREDONDO MD Ot S39.012A STRAIN OF MUSCLE, FASCIA AND TENDON OF L 04/21/2019 GUY ARREDONDO MD, Ot X50.1XXA OVEREXERTION FROM PROLONGED STATIC OR AW 04/21/2019 GUY ARREDONDO MD, Ot Z79.5 2 PRISON (CURRENT) USE OF SYSTEMIC STER 04/21/2019 GUY ARREDONDO MD, Ot Z91.0 18 ALLERGY TO OTHER FOODS 04/21/2019 GUY ARREDONDO MD, Ot Z91.0 40 LATEX ALLERGY STATUS 07/29/2019 RADHA ALEJANDRO MD Ot J06. 9 ACUTE UPPER RESPIRATORY INFECTION, UNSPE 07/29/2019 RADHA ALEJANDRO MD Ot J45.909 UNSPECIFIED ASTHMA, UNCOMPLICATED 07/29/2019 RADHA ALEJANDRO MD Ot R07. 89 OTHER CHEST PAIN 07/29/2019 RADHA ALEJANDRO MD Ot Z79. 52 IMPLEMENTATION ARCHITECT (CURRENT) USE OF SYSTEMIC STER 07/29/2019 RADHA ALEJANDRO MD Ot Z91.040 LATEX ALLERGY STATUS 08/02/2019 RADHA ALEJANDRO MD Ot J06. 9 ACUTE UPPER RESPIRATORY INFECTION, UNSPE 08/02/2019 RADHA ALEJANDRO MD Ot J45.909 UNSPECIFIED ASTHMA, UNCOMPLICATED 08/02/2019 RADHA ALEJANDRO MD Ot R07. 89 OTHER CHEST PAIN 08/02/2019 RADHA ALEJANDRO MD Ot Z79. 52 IMPLEMENTATION ARCHITECT (CURRENT) USE OF SYSTEMIC STER 08/02/2019 RADHA ALEJANDRO MD Ot Z91.040 LATEX ALLERGY STATUS Procedures There is no data. Results Test Result Range Urine beta human chorionic gonadotropin (hCG) measurement - 03/09/19 23:47 Urine beta human chorionic gonadotropin (hCG) measurem ent NEGATIVE NEGATIVE Complete urinalysis with reflex to cultu re - 03/09/19 23:47 Urine color determination YELLOW NRG Urine clarity determination SLT CLOUDY NRG Urine pH measurement by test strip 6.0 5-9 Specific gravity of urine by test strip 1.020 1.016-1.022 Urine protein assay by test strip, semi-quantitative NEGATIVE NEGATIVE Urine glucose detection by automated test strip NE GATIVE NEGATIVE Erythrocytes detection in urine sediment by light micr oscopy TRACE NEGATIVE Urine ketones detection by automated test strip NE GATIVE NEGATIVE Urine nitrite detection by test strip NEGATIVE NEGATIVE Urine total bilirubin detection by test strip NEGA TIVE NEGATIVE Urine urobilinogen measurement by automated test strip (mass/volume) 1.0 mg/dL NORMAL Urine leukocyte esterase detection by dipstick 3+ NEGATIVE Automated urine sediment erythrocyte cou nt by microscopy (number/high power field) [HPF] NRG Automated urine sediment leukocyte count by microscopy (number/high power field) [HPF] NRG Bacteria detection in urine sediment by light microsco py MODERATE NRG Squamous epithelial cells detection in u rine sediment by light microscopy 2-5 NRG Crystals detection in urine sediment by light microsco py NONE NRG Casts detection in urine sediment by light microscopy NONE NRG Mucus detection in urine sediment by light microscopy NONE NRG Complete urinalysis with reflex to culture YES NRG Urine Trichomonas species detection by light microscop y FEW NRG Bacterial urine culture - 03/09/19 23:47 Bacterial urine culture 3 OR MORE NRG COLONY COUNT 50,000 CFU/ML NRG FTX;REPORTABLE GRAM POSITIVE ISOLATES; SUGGESTING NRG FREE TEXT ENTRY 2 PROBABLE COLLECTION CONTAMINATIO N WITH NRG FREE TEXT ENTRY 3 SKIN JASON. NO SUSCEPTIBILITY PE RFORMED. NRG Complete urinalysis with reflex to cultu re - 04/18/19 00:25 Urine color determination YELLOW NRG Urine clarity determination SLT CLOUDY NRG Urine pH measurement by test strip 5.5 5-9 Specific gravity of urine by test strip >= 1.016-1.022 Urine protein assay by test strip, semi-quantitative NEGATIVE NEGATIVE Urine glucose detection by automated test strip NE GATIVE NEGATIVE Erythrocytes detection in urine sediment by light micr oscopy NEGATIVE NEGATIVE Urine ketones detection by automated test strip TR GUMARO NEGATIVE Urine nitrite detection by test strip NEGATIVE NEGATIVE Urine total bilirubin detection by test strip NEGA TIVE NEGATIVE Urine urobilinogen measurement by automated test strip (mass/volume) 0.2 mg/dL NORMAL Urine leukocyte esterase detection by dipstick NEG ATIVE NEGATIVE Automated urine sediment erythrocyte cou nt by microscopy (number/high power field) [HPF] NRG Automated urine sediment leukocyte count by microscopy (number/high power field) [HPF] NRG Bacteria detection in urine sediment by light microsco py MODERATE NRG Squamous epithelial cells detection in u rine sediment by light microscopy 25-50 NRG Crystals detection in urine sediment by light microsco py NONE NRG Casts detection in urine sediment by light microscopy NONE NRG Mucus detection in urine sediment by light microscopy NONE NRG Complete urinalysis with reflex to culture NO NRG Urine beta human chorionic gonadotropin (hCG) measurement - 04/18/19 00:25 Urine beta human chorionic gonadotropin (hCG) measurem ent NEGATIVE NEGATIVE TEST, SERUM (QUAL) - 04/19/19 10:12 HCG, TOTAL, QL NEGATIVE See Note: SUREPATH PAP RFX HPV mRNA E6/E7 - 09:48 CLINICAL INFORMATION: NRG LMP: NRG PREV. PAP: NRG PREV. BX: NRG SOURCE: Cervix NRG STATEMENT OF ADEQUACY: NRG INTERPRETATION/RESULT: NRG ACCOUNTS PAYABLE ASSISTANT: NRG INFECTION: NRG COMMENT NRG Influenza virus A and B antigen detectio n - 07/29/19 14:50 FLU RESULT NEGATIVE FOR INFLUENZA A AND B ANTIGENS BY IA NRG Complete urinalysis with reflex to cultu re - 08/22/19 00:31 Urine color determination YELLOW NRG Urine clarity determination CLEAR NR G Urine pH measurement by test strip 6.0 5-9 Specific gravity of urine by test strip 1.025 1.016-1.022 Urine protein assay by test strip, semi-quantitative NEGATIVE NEGATIVE Urine glucose detection by automated test strip NE GATIVE NEGATIVE Erythrocytes detection in urine sediment by light micr oscopy NEGATIVE NEGATIVE Urine ketones detection by automated test strip NE GATIVE NEGATIVE Urine nitrite detection by test strip NEGATIVE NEGATIVE Urine total bilirubin detection by test strip NEGA TIVE NEGATIVE Urine urobilinogen measurement by automated test strip (mass/volume) 0.2 mg/dL < = 1.0 Urine leukocyte esterase detection by dipstick NEG ATIVE NEGATIVE Automated urine sediment erythrocyte cou nt by microscopy (number/high power field) NONE NRG Automated urine sediment leukocyte count by microscopy (number/high power field) RARE NRG Bacteria detection in urine sediment by light microsco py TRACE NRG Squamous epithelial cells detection in u rine sediment by light microscopy 10-25 NRG Crystals detection in urine sediment by light microsco py NONE NRG Casts detection in urine sediment by light microscopy NONE NRG Mucus detection in urine sediment by light microscopy NEGATIVE NRG Complete urinalysis with reflex to culture NO NRG Automated blood complete blood count (he mogram) panel - 08/22/19 00:31 Blood leukocytes automated count (number/volume) 11.2 10*3/uL 4.3-11.0 Blood erythrocytes automated count (number/volume) 4.52 10*6/uL 4.35-5.85 Venous blood hemoglobin measurement (mass/volume) 13.6 g/dL 11.5-16.0 Blood hematocrit (volume fraction) 41 % 35-52 Automated erythrocyte mean corpuscular volume 90 [ foz_us] 80-99 Automated erythrocyte mean corpuscular h emoglobin (mass per erythrocyte) 30 pg 25-34 Automated erythrocyte mean corpuscular h emoglobin concentration measurement (mass/volume) 33 g/dL 32-36 Automated erythrocyte distribution width ratio 13. 0 % 10.0- 14.5 Automated blood platelet count (count/volume) 305 10*3/uL 130-400 Automated blood platelet mean volume measurement 8.8 [foz_us] 7.4-10.4 Comprehensive metabolic panel - 08/22/19 00:31 Serum or plasma sodium measurement (moles/volume) 141 mmol/L 135-145 Serum or plasma potassium measurement (moles/volume) 4.0 mmol/L 3.6-5.0 Serum or plasma chloride measurement (moles/volume) 106 mmol/L 98-107 Carbon dioxide 23 mmol/L 21-32 Serum or plasma anion gap determination (moles/volume) 12 mmol/L 5-14 Serum or plasma urea nitrogen measurement (mass/volume ) 11 mg/dL 7-18 Serum or plasma creatinine measurement (mass/volume) 0.73 mg/dL 0.60-1.30 Serum or plasma urea nitrogen/creatinine mass ratio 15 NRG Serum or plasma creatinine measurement w ith calculation of estimated glomerular filtration rate > NRG Serum or plasma glucose measurement (mass/volume) 98 mg/dL 70-105 Serum or plasma calcium measurement (mass/volume) 9.5 mg/dL 8.5-10.1 Serum or plasma total bilirubin measurement (mass/volu me) 0.7 mg/dL 0.1-1.0 Serum or plasma alkaline phosphatase michel surement (enzymatic activity/volume) 54 U/L 40-136 Serum or plasma aspartate aminotransfera se measurement (enzymatic activity/volume) 14 U/L 5-34 Serum or plasma alanine aminotransferase measurement (enzymatic activity/volume) 13 U/L 0-55 Serum or plasma protein measurement (mass/volume) 7.5 g/dL 6.4-8.2 Serum or plasma albumin measurement (mass/volume) 4.4 g/dL 3.2-4.5 CALCIUM CORRECTED 9.2 mg/dL 8.5-10.1 Lipase - 08/22/19 00:31 Lipase 30 U/L 8-78 Encounters ACCT No. Visit Date/Time Discharge Status Pt. Type Provider Facility Loc./Unit Complaint [id number] 06/23/2019 09:00:00 Document Registration [id number] 04/19/2019 10:00:00 Document Registration [id number] 08/22/2019 00:06:00 01:14:00 DIS Emergency MARKUS LOPEZ DO [facility] ER FS VOMITING [id number] 07/29/2019 14:05:00 15:54:00 DIS Emergency FLAVIA BARBER, RADHA Fernandes [facility] ER FS CHEST TIGHTNESS [id number] 04/17/2019 23:57:00 02:10:00 DIS Emergency ARNULFO BARBER, GUY Dennis [facility] ER FS BACK PAIN [id number] 04/13/2019 12:18:00 13:42:00 DIS Emergency KIM CAO DO [facility] ER FS RT TOE LAC [id number] 03/09/2019 23:13:00 00:24:00 DIS Emergency KIM CAO DO [facility] ER FS VOMITING, FATIGUED [id number] 10/23/2018 00:37:00 01:40:00 DIS Emergency LINDSAY ROA DO [facility] ER FS COUGH-HARD TO BREATHE
== END 2019-07-29 15:54 | disposition home or self-care (01) ==
LOC: EDUNIT# 14:04 → ER FS 14:05
DX: J06.9 Acute upper respiratory infection, unspecified (principal); J45.909 Unspecified asthma, uncomplicated; Z91.040 Latex allergy status; Z79.52 Long term (current) use of systemic steroids
CPT/HCPCS: 87804

== ENCOUNTER 2019-08-22 00:03 | Emergency (ER) | payer OTHER ==
[~2019-08-22] VITALS: Ht 167.7 cm; Wt 154.3 kg
--- NOTE | 2019-08-22 00:17 | ED GI ---
General Chief Complaint: Abdominal/GI Problems Stated Complaint: VOMITING History of Present Illness Date Seen by Provider: Aug 22, 2019 Time Seen by Provider: 00:16 Initial Comments 23-year-old female presents with nausea, vomiting and diarrhea that started today. Reports she's had multiple episodes of both. She comes in because she continues to have it has gotten a little bit more frequent. She has no abdominal pain, fever, cough. She reports she has a sore throat from vomiting. No other symptoms reported. Allergies and Home Medications Allergies Coded Allergies: strawberry (Unverified Allergy, Mild, 10/23/18) latex (Verified Allergy, Unknown, RASH, 10/23/18) Home Medications Azithromycin 250 Mg Tablet, 250 MG PO DAILY Prescribed by: LINDSAY ROA on 10/23/18104 Azithromycin 250 Mg Tablet, 250 MG PO UD TAKE 2 TABLETS ON DAY ONE THEN TAKE 1 TABLET DAILY FOR FOUR MORE DAYS Prescribed by: RADHA ALEJANDRO on 07/29/19 1550 Baclofen 10 Mg Tablet, 10 MG PO TID PRN for MUSCLE SPASMS Prescribed by: GUY ARREDONDO on 04/18/19206 Hydrocodone Bit/Acetaminophen 1 Tab Tab, 1 EACH PO Q6H PRN for PAIN-MODERATE Prescribed by: GUY COWANRT on 04/18/19206 Hydrocodone/Acetaminophen 10 Ml Solution, 5 ML PO Q4H PRN for COUGH Prescribed by: LINDSAY ROA on 10/23/18105 Ibuprofen 800 Mg Tablet, 800 MG PO Q8H PRN for PAIN Prescribed by: GUY SERRANOYART on 04/18/19206 Oseltamivir Phosphate 75 Mg Capsule, 1 CAP PO BID Prescribed by: SARAH CLINE on 04/16/09 011 Prednisone 50 Mg Tab, 50 MG PO DAILY Prescribed by: LINDSAY ROA on 10/23/18104 Sulfamethoxazole/Trimethoprim 1 Each Tablet, 1 EACH PO BID Prescribed by: NASH ALVAREZ on 03/10/19 0018 Patient Home Medication List Home Medication List Reviewed: Yes Review of Systems Review of Systems Constitutional: No chills, No fever Respiratory: Denies Cough Cardiovascular: Denies Chest Pain Gastrointestinal: Denies Abdominal Pain; Diarrhea, Nausea, Vomiting Genitourinary: No Symptoms Reported Musculoskeletal: no symptoms reported Skin: no symptoms reported Psychiatric/Neurological: No Symptoms Reported Past Tkveyuf-Vhdggk-Vmkioa Hx Past Med/Social Hx: Reviewed Nursing Past Med/Soc Hx Patient Social History Alcohol Use: Regular Use Recreational Drug Use: No Smoking Status: Current Everyday Smoker Type Used: Cigarettes 2nd Hand Smoke Exposure: No Recent Foreign Travel: No Contact w/Someone Who Travel: No Recent Hopitalizations: No Physical Abuse: No Sexual Abuse: No Mistreated: No Fear: No Immunizations Up To Date Tetanus Booster (TDap): Unknown Seasonal Allergies Seasonal Allergies: No Past Medical History Surgeries: Yes (WISDOM TEETH REMOVAL) Gallbladder, Tonsillectomy Respiratory: Yes Asthma Cardiac: No Neurological: No Genitourinary: No Gastrointestinal: No Musculoskeletal: No Endocrine: No HEENT: No Cancer: No Psychosocial: No Integumentary: No Blood Disorders: No Physical Exam Vital Signs Vital Signs - First Documented 08/22/19 00:12 Temp 36.8 Pulse 98 Resp 16 B/P (MAP) 145/89 (107) O2 Delivery Room Air Capillary Refill : Height/Weight/BMI Height: 5'5.50" Weight: 334lbs. 0oz. 151.023592nk; 58.00 BMI Method:Stated General Appearance: WD/WN, no apparent distress, obese (morbid ) HEENT: PERRL/EOMI Respiratory: lungs clear, normal breath sounds, no respiratory distress Cardiovascular: regular rate, rhythm, no edema Gastrointestinal: non tender, soft Back: no vertebral tenderness Neurologic/Psychiatric: no motor/sensory deficits, alert, oriented x 3 Skin: normal color, warm/dry Progress/Results/Core Measures Results/Orders Lab Results Laboratory Tests Test 08/22/19 00:31 Range/Units White Blood Count 11.2 H 4.3-11.0 10^3/uL Red Blood Count 4.52 4.35-5.85 10^6/uL Hemoglobin 13.6 11.5-16.0 G/DL Hematocrit 41 35-52 % Mean Corpuscular Volume 90 80-99 FL Mean Corpuscular Hemoglobin 30 25-34 PG Mean Corpuscular Hemoglobin Concent 33 32-36 G/DL Red Cell Distribution Width 13.0 10.0-14.5 % Platelet Count 305 130-400 10^3/uL Mean Platelet Volume 8.8 7.4-10.4 FL Urine Color YELLOW Urine Clarity CLEAR Urine pH 6.0 5-9 Urine Specific Mouthcard 1.025 H 1.016-1.022 Urine Protein NEGATIVE NEGATIVE Urine Glucose (UA) NEGATIVE NEGATIVE Urine Ketones NEGATIVE NEGATIVE Urine Nitrite NEGATIVE NEGATIVE Urine Bilirubin NEGATIVE NEGATIVE Urine Urobilinogen 0.2 < = 1.0 MG/DL Urine Leukocyte Esterase NEGATIVE NEGATIVE Urine RBC (Auto) NEGATIVE NEGATIVE Urine RBC NONE /HPF Urine WBC RARE /HPF Urine Squamous Epithelial Cells 10-25 H /HPF Urine Crystals NONE /LPF Urine Bacteria TRACE /HPF Urine Casts NONE /LPF Urine Mucus NEGATIVE /LPF Urine Culture Indicated NO Sodium Level 141 135-145 MMOL/L Potassium Level 4.0 3.6-5.0 MMOL/L Chloride Level 106 98-107 MMOL/L Carbon Dioxide Level 23 21-32 MMOL/L Anion Gap 12 5-14 MMOL/L Blood Urea Nitrogen 11 7-18 MG/DL Creatinine 0.73 0.60-1.30 MG/DL Estimat Glomerular Filtration Rate > 60 BUN/Creatinine Ratio 15 Glucose Level 98 70-105 MG/DL Calcium Level 9.5 8.5-10.1 MG/DL Corrected Calcium 9.2 8.5-10.1 MG/DL Total Bilirubin 0.7 0.1-1.0 MG/DL Aspartate Amino Transf (AST/SGOT) 14 5-34 U/L Alanine Aminotransferase (ALT/SGPT) 13 0-55 U/L Alkaline Phosphatase 54 40-136 U/L Total Protein 7.5 6.4-8.2 GM/DL Albumin 4.4 3.2-4.5 GM/DL Lipase 30 8-78 U/L My Orders Orders - LOPEZ,MARKUS L DO Cbc No Diff (08/22/19 00:22) Comprehensive Metabolic Panel (08/22/19 00:22) Lipase (08/22/19 00:22) Abdomen Flat & Upright/Decub (08/22/19 00:22) Ondansetron Oral Dissolve Tab (Zofran (08/22/19 00:22) Ua Culture If Indicated (08/22/19 00:24) Urine Bedside (08/22/19 00:47) Vital Signs/I&O 08/22/19 00:12 Temp 36.8 Pulse 98 Resp 16 B/P (MAP) 145/89 (107) O2 Delivery Room Air Departure Impression Primary Impression: Viral gastroenteritis Disposition: 01 HOME, SELF-CARE Condition: Stable Departure-Patient Inst. Referrals: MORENITA GAMING MD (PCP/Family) Primary Care Physician Patient Instructions: Viral Gastroenteritis Add. Discharge Instructions: Emergency department focuses on treating and ruling out life-threatening diseases. Whenever possible, a diagnosis is given. However, most patients are given an impression based on their history, physical exam, and workup during your brief time in the ER. Information about probable diagnosis and other educational material has been provided. Please take the time to read and understand this information. It is very important that you follow up with a physician as discussed during the visit today. Failure to adhere to your follow-up instructions may lead to severe disability, injury, or so please make sure to keep your appointments or obtain one as requested. Please keep in mind the emergency department is not designed to your primary care or "family doctor" and nonurgent issues are best evaluated by an outpatient physician All discharge instructions reviewed with patient and/or family. Voiced understanding. Scripts Ondansetron (Ondansetron Odt) 4 Mg Tab.rapdis 4 MG PO Q6H PRN for NAUSEA/VOMITING, #20 TAB Prov: MARKUS LOPEZ DO 08/22/19 MARKUS LOPEZ DO Aug 22, 2019 00:17
[2019-08-22] MEDS ORDERED: ONDANSETRON 4 MG (ZOFRAN) ORAL DISSOLVE TAB PO STA (00:22)
[2019-08-22 00:47] LABS: BACTERIA,URINE TRACE /HPF; BILIRUBIN,URINE NEGATIVE (NEGATIVE); CLARITY,URINE CLEAR; COLOR,URINE YELLOW; GLUCOSE, URINE (UA) NEGATIVE (NEGATIVE); KETONES,URINE NEGATIVE (NEGATIVE); LEUKOCYTE ESTERASE ,URINE NEGATIVE (NEGATIVE); NITRITE,URINE NEGATIVE (NEGATIVE); PROTEIN,URINE NEGATIVE (NEGATIVE); WBC,URINE RARE /HPF
[2019-08-22 00:48] LABS: HEMOGLOBIN 13.6 G/DL (11.5-16.0); MEAN PLATELET VOLUME 8.8 FL (7.4-10.4); WHITE BLOOD COUNT 11.2 10^3/uL (4.3-11.0)
[2019-08-22 01:05] LABS: BUN/CREATININE RATIO 15; CALCIUM 9.5 MG/DL (8.5-10.1); CARBON DIOXIDE 23 MMOL/L (21-32); CHLORIDE 106 MMOL/L (98-107); CREATININE SERUM 0.73 MG/DL (0.60-1.30); GFR ESTIMATED > 60; GLUCOSE 98 MG/DL (70-105); SODIUM 141 MMOL/L (135-145)
[2019-08-22 01:06] LABS: ALANINE AMINOTRANSFERASE 13 U/L (0-55); ALBUMIN 4.4 GM/DL (3.2-4.5); ALKALINE PHOSPHATASE 54 U/L (40-136); BILIRUBIN,TOTAL 0.7 MG/DL (0.1-1.0); LIPASE 30 U/L (8-78); TOTAL PROTEIN 7.5 GM/DL (6.4-8.2)
[2019-08-22] MEDS ORDERED: ONDA4TAB11 PO (01:11)
[2019-08-22 01:14] VITALS: BP 149/79
--- NOTE | 2019-08-22 07:21 | Diagnostic Imaging Report ---
INDICATION: Nausea, vomiting and diarrhea. 3 views were obtained. FINDINGS: The bowel gas pattern is nonspecific. There are surgical clips in right upper quadrant. There are no abnormal abdominal calcifications. IMPRESSION: Nonspecific bowel gas pattern. Dictated by: Dictated on workstation # [id number]
== END 2019-08-22 01:14 | disposition home or self-care (01) ==
LOC: EDUNIT# 00:03 → ER FS 00:06
DX: A08.4 Viral intestinal infection, unspecified (principal); J45.909 Unspecified asthma, uncomplicated; F17.210 Nicotine dependence, cigarettes, uncomplicated; Z91.040 Latex allergy status; Z79.52 Long term (current) use of systemic steroids; Z90.89 Acquired absence of other organs
CPT/HCPCS: 36415; 74019; 80053; 81000; 83690; 84703; 85027

== ENCOUNTER 2019-08-27 22:39 | Emergency (ER) | payer OTHER ==
[~2019-08-27] VITALS: Ht 167 cm; Wt 145.0 kg
[~2019-08-27 22:39] MED LIST changes: +ONDA4TAB11 PO
--- NOTE | 2019-08-27 23:14 | ED Upper Extremity ---
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 This progressed pain was mostly just the upper posterior shoulder itself range of motion is limited due to pain but nothing has been taking some ibuprofen for the Onset: last week Pain/Injury Location: left shoulder Allergies and Home Medications Allergies Coded Allergies: strawberry (Unverified Allergy, Mild, 10/23/18) latex (Verified Allergy, Unknown, RASH, 10/23/18) Home Medications Azithromycin 250 Mg Tablet, 250 MG PO DAILY Prescribed by: LINDSAY ROA on 10/23/18104 Azithromycin 250 Mg Tablet, 250 MG PO UD TAKE 2 TABLETS ON DAY ONE THEN TAKE 1 TABLET DAILY FOR FOUR MORE DAYS Prescribed by: RADHA ALEJANDRO on 07/29/19 155 Baclofen 10 Mg Tablet, 10 MG PO TID PRN for MUSCLE SPASMS Prescribed by: GUY ARREDONDO on 04/18/19206 Hydrocodone Bit/Acetaminophen 1 Tab Tab, 1 EACH PO Q6H PRN for PAIN-MODERATE Prescribed by: GUY ARREDONDO on 04/18/19206 Hydrocodone/Acetaminophen 10 Ml Solution, 5 ML PO Q4H PRN for COUGH Prescribed by: LINDSAY ROA on 10/23/18105 Ibuprofen 800 Mg Tablet, 800 MG PO Q8H PRN for PAIN Prescribed by: GUY ARREDONDO on 04/18/19206 Ondansetron 4 Mg Tab.rapdis, 4 MG PO Q6H PRN for NAUSEA/VOMITING Prescribed by: MARKUS LOPEZ on 08/22/19 011 Oseltamivir Phosphate 75 Mg Capsule, 1 CAP PO BID Prescribed by: SARAH CLINE on 04/16/09 011 Prednisone 50 Mg Tab, 50 MG PO DAILY Prescribed by: LINDSAY ROA on 10/23/18104 Sulfamethoxazole/Trimethoprim 1 Each Tablet, 1 EACH PO BID Prescribed by: NASH ALVAREZ on 03/10/19 0018 Patient Home Medication List Home Medication List Reviewed: Yes Review of Systems Constitutional: No chills, No fever EENTM: no symptoms reported Respiratory: no symptoms reported Cardiovascular: no symptoms reported Musculoskeletal: No back pain; joint pain; No joint swelling; muscle stiffness Skin: no symptoms reported Past Xevemfj-Fjtlis-Hmzafa Hx Past Med/Social Hx: Reviewed Nursing Past Med/Soc Hx Patient Social History Alcohol Use: Denies Use Recreational Drug Use: No Type Used: Cigarettes 2nd Hand Smoke Exposure: No Recent Foreign Travel: No Contact w/Someone Who Travel: No Recent Infectious Disease Expo: No Recent Hopitalizations: No Physical Abuse: No Sexual Abuse: No Mistreated: No Immunizations Up To Date Tetanus Booster (TDap): Unknown Seasonal Allergies Seasonal Allergies: No Past Medical History Surgeries: Yes Adenoidectomy, Gallbladder, Tonsillectomy Respiratory: Yes Asthma Cardiac: No Neurological: No Genitourinary: No Gastrointestinal: No Musculoskeletal: No Endocrine: No HEENT: No Cancer: No Psychosocial: Yes Anxiety, Depression Integumentary: No Blood Disorders: No Physical Exam Vital Signs Vital Signs - First Documented 08/27/19 22:47 Temp 36.0 Pulse 96 Resp 18 B/P (MAP) 151/88 (109) Pulse Ox 96 O2 Delivery Room Air Capillary Refill : Less Than 3 Seconds Height, Weight, BMI Height: 5'5.50" Weight: 334lbs. 0oz. 151.584296xm; 51.00 BMI Method:Stated General Appearance: WD/WN, mild distress Neck: non-tender, full range of motion Cardiovascular: regular rate, rhythm, no murmur Respiratory: chest non-tender, lungs clear Back: normal inspection, no vertebral tenderness Shoulder: No normal ROM, No asymmetry, No bone tenderness, No deformity; limited ROM (poor range of motion with point tenderness over the upper posterior left shoulder joint itself no paraspinous muscle spasm or tenderness noted), pain; No swelling Neurologic/Tendon: normal sensation, normal motor functions Neurologic/Psychiatric: no motor/sensory deficits, alert, oriented x 3 Progress/Results/Core Measures Results/Orders My Orders Orders - ELLA BELTRE JR, MD Ketorolac Injection (Toradol Injection) (08/27/19 23:15) Orphenadrine Injection (Norflex Injectio (08/27/19 23:15) Vital Signs/I&O 08/27/19 22:47 Temp 36.0 Pulse 96 Resp 18 B/P (MAP) 151/88 (109) Pulse Ox 96 O2 Delivery Room Air Blood Pressure Mean: 109 Departure Impression Primary Impression: Left shoulder strain Qualified Codes: S46.912A - Strain of unspecified muscle, fascia and tendon at shoulder and upper arm level, left arm, initial encounter Disposition: HOME, SELF-CARE Condition: Stable Departure-Patient Inst. Referrals: MORENITA GAMING MD (PCP/Family) Primary Care Physician Patient Instructions: Shoulder Pain (DC) Scripts Cyclobenzaprine HCl (Cyclobenzaprine HCl) 5 Mg Tablet 5 MG PO DAILY PRN for MUSCLE SPASMS, #5 TAB Prov: ELLA BELTRE JR, MD 08/27/19 ELLA BELTRE JR, MD Aug 27, 2019 23:14
[2019-08-27] MEDS ORDERED: KETOROLAC 60 MG/2 ML VIAL IM ONE (23:15)
[2019-08-27] MEDS ORDERED: ORPHENADRINE 60 MG/2 ML (NORFLEX) AMP IM ONE (23:15)
[2019-08-27] MEDS ORDERED: CYCL5TAB PO (23:16)
[2019-08-27 23:26] VITALS: BP 151/88
== END 2019-08-27 23:31 | disposition home or self-care (01) ==
LOC: EDUNIT# 22:39 → ER FS 22:42
DX: S46.912A Strain of unspecified muscle, fascia and tendon at shoulder and upper arm level, left arm, initial encounter (principal); J45.909 Unspecified asthma, uncomplicated; F41.9 Anxiety disorder, unspecified; F32.9 Major depressive disorder, single episode, unspecified; Z91.040 Latex allergy status; Z79.52 Long term (current) use of systemic steroids; Z90.89 Acquired absence of other organs; X50.0XXA Overexertion from strenuous movement or load, initial encounter; Y92.59 Other trade areas as the place of occurrence of the external cause
CPT/HCPCS: 96372; 99284

== ENCOUNTER 2019-09-03 19:14 | Emergency (ER) | payer OTHER ==
[~2019-09-03] VITALS: Ht 167.7 cm; Wt 170.3 kg
[~2019-09-03 19:14] MED LIST changes: +CYCL5TAB PO
--- NOTE | 2019-09-03 19:30 | ED Lower Extremity ---
General Chief Complaint: Lower Extremity Stated Complaint: LEFT FOOT PAIN Source: patient Exam Limitations: no limitations History of Present Illness Date Seen by Provider: Sep 03, 2019 Time Seen by Provider: 19:26 Initial Comments Walking yesterday and states she tripped and hit her left foot on "herself". Moderate pain in her foot since and difficulty with weightbearing, she states she is walking with a limp. Denies history of foot or ankle fracture or pro blems. Some bruising to her foot with mild swelling. Onset: yesterday Severity: mild Allergies and Home Medications Allergies Coded Allergies: strawberry (Unverified Allergy, Mild, 10/23/18) latex (Verified Allergy, Unknown, RASH, 10/23/18) Home Medications Azithromycin 250 Mg Tablet, 250 MG PO DAILY Prescribed by: LINDSAY ROA on 10/23/18104 Azithromycin 250 Mg Tablet, 250 MG PO UD TAKE 2 TABLETS ON DAY ONE THEN TAKE 1 TABLET DAILY FOR FOUR MORE DAYS Prescribed by: RADHA ALEJANDRO on 07/29/19 155 Baclofen 10 Mg Tablet, 10 MG PO TID PRN for MUSCLE SPASMS Prescribed by: GUY ARREDONDO on 04/18/19206 Cyclobenzaprine HCl 5 Mg Tablet, 5 MG PO DAILY PRN for MUSCLE SPASMS Prescribed by: ELLA BELTRE on 08/27/19 2316 Hydrocodone Bit/Acetaminophen 1 Tab Tab, 1 EACH PO Q6H PRN for PAIN-MODERATE Prescribed by: GUY ARREDONDO on 04/18/19206 Hydrocodone/Acetaminophen 10 Ml Solution, 5 ML PO Q4H PRN for COUGH Prescribed by: LINDSAY ROA on 10/23/18105 Ibuprofen 800 Mg Tablet, 800 MG PO Q8H PRN for PAIN Prescribed by: GUY ARREDONDO on 04/18/19206 Ondansetron 4 Mg Tab.rapdis, 4 MG PO Q6H PRN for NAUSEA/VOMITING Prescribed by: MARKUS LOPEZ on 08/22/19 011 Oseltamivir Phosphate 75 Mg Capsule, 1 CAP PO BID Prescribed by: SARAH CLINE on 04/16/09 011 Prednisone 50 Mg Tab, 50 MG PO DAILY Prescribed by: LINDSAY ROA on 10/23/18104 Sulfamethoxazole/Trimethoprim 1 Each Tablet, 1 EACH PO BID Prescribed by: NASH ALVAREZ on 03/10/19 0018 Patient Home Medication List Home Medication List Reviewed: Yes Review of Systems Constitutional: no symptoms reported Musculoskeletal: see HPI, other (pain, bruiding and swelling of foot) Skin: change in color; No change in hair/nails Past Ehqwtgr-Ryhvax-Ganwgt Hx Past Med/Social Hx: Reviewed Nursing Past Med/Soc Hx Patient Social History Type Used: Cigarettes 2nd Hand Smoke Exposure: No Recent Foreign Travel: No Contact w/Someone Who Travel: No Recent Hopitalizations: No Immunizations Up To Date Tetanus Booster (TDap): Unknown Seasonal Allergies Seasonal Allergies: No Past Medical History Surgeries: Yes Adenoidectomy, Gallbladder, Tonsillectomy Respiratory: Yes Asthma Cardiac: No Neurological: No Genitourinary: No Gastrointestinal: No Musculoskeletal: No Endocrine: No HEENT: No Cancer: No Psychosocial: Yes Anxiety, Depression Integumentary: No Blood Disorders: No Physical Exam Vital Signs Vital Signs - First Documented 09/03/19 19:25 Temp 35.9 Pulse 113 Resp 18 B/P (MAP) 132/92 (105) Pulse Ox 98 O2 Delivery Room Air Capillary Refill : Height, Weight, BMI Height: 5'5.50" Weight: 334lbs. 0oz. 151.974998gp; 51.00 BMI Method:Stated General Appearance: WD/WN, no apparent distress Ankles: bilateral ankle non-tender, bilateral ankle normal inspection Feet: bilateral foot normal inspection; left foot bone tenderness, left foot ecchymosis, left foot limited range of motion, left foot soft tissue tenderness, left foot swelling Neurologic/Psychiatric: no motor/sensory deficits, alert Skin: ecchymosis (distl 3rd and 4th MT) Progress/Results/Core Measures Results/Orders My Orders Orders - ROSALIND ARNETT DO Foot 3 View Left (09/03/19 19:25) Vital Signs/I&O 09/03/19 19:25 Temp 35.9 Pulse 113 Resp 18 B/P (MAP) 132/92 (105) Pulse Ox 98 O2 Delivery Room Air Departure Impression Primary Impression: Fracture of foot Qualified Codes: S92.902A - Unspecified fracture of left foot, initial encounter for closed fracture Disposition: HOME, SELF-CARE Condition: Stable Departure-Patient Inst. Decision time for Depature: 19:35 Referrals: MORENITA GAMING MD (PCP/Family) Primary Care Physician Patient Instructions: Foot Fracture (DC) Add. Discharge Instructions: Do NOT bear any weight on your left foot except for when wearing your "Orthopedic Boot". See your Primary Doctor in 2 weeks for evaluation. All discharge instructions reviewed with patient and/or family. Voiced understanding. ROSALIND ARNETT DO Sep 03, 2019 19:29
--- NOTE | 2019-09-03 19:47 | Diagnostic Imaging Report ---
INDICATION: Pain status post injury. COMPARISON: None FINDINGS: 3 radiographic views of the left foot were obtained and show acute nondisplaced obliquely oriented fracture of the distal 5th metatarsal. There is no intra-articular extension. Joint spaces are maintained. No other acute osseous abnormality is seen. No unexpected radiopaque foreign bodies are identified. IMPRESSION: 1. Acute fracture of the left 5th metatarsal as above. Dictated by: Dictated on workstation # [id number]
[2019-09-03 19:56] VITALS: BP 132/92
== END 2019-09-03 19:56 | disposition home or self-care (01) ==
LOC: EDUNIT# 19:14 → ER FS 19:17
DX: S92.902A Unspecified fracture of left foot, initial encounter for closed fracture (principal); J45.909 Unspecified asthma, uncomplicated; F41.9 Anxiety disorder, unspecified; F32.9 Major depressive disorder, single episode, unspecified; Z91.040 Latex allergy status; Z79.52 Long term (current) use of systemic steroids; Z90.89 Acquired absence of other organs; W18.40XA Slipping, tripping and stumbling without falling, unspecified, initial encounter
CPT/HCPCS: 73630

== ENCOUNTER 2019-09-08 20:04 | Emergency (ER) | payer OTHER ==
[~2019-09-08] VITALS: Ht 167.7 cm; Wt 154.2 kg
--- NOTE | 2019-09-08 20:38 | ED Lower Extremity ---
General Chief Complaint: Lower Extremity Stated Complaint: FOOT/KNEE PAIN Nursing Triage Note: Patient states that she was seen in the ER on 09/03/19 and was diagnosed with a fractured left foot. She was told to follow up and stated that she couldn't get an appointment until 09/19/19. This RN asked if she made that appointment and she stated that she did not because she was supposed to see an orthopedist. She states that she called and they have not called her back. Nursing Sepsis Screen: No Definite Risk Source: patient, family (sister) Exam Limitations: no limitations History of Present Illness Date Seen by Provider: Sep 08, 2019 Time Seen by Provider: 20:19 Initial Comments Patient presents to the ER by private conveyance with her sister and chief complaint that she broke her foot a day or 2 ago and came to the ER where she was discovered to have a fracture and was put in a boot. She says it's hurting despite Tylenol and ibuprofen. She's not on light duty and will have a difficult time performing her duties as a [employer] tonight. She took ibuprofen yesterday and it did not help so she tried Tylenol tonight with her last dose being at 6:00 in the evening. She also feels that this is not helping. She is not taking them routinely or together. Allergies and Home Medications Allergies Coded Allergies: strawberry (Unverified Allergy, Mild, 10/23/18) latex (Verified Allergy, Unknown, RASH, 10/23/18) Home Medications Azithromycin 250 Mg Tablet, 250 MG PO DAILY Prescribed by: LINDSAY ROA on 10/23/18 0105 Azithromycin 250 Mg Tablet, 250 MG PO UD TAKE 2 TABLETS ON DAY ONE THEN TAKE 1 TABLET DAILY FOR FOUR MORE DAYS Prescribed by: RADHA ALEJANDRO on 07/29/19 1550 Baclofen 10 Mg Tablet, 10 MG PO TID PRN for MUSCLE SPASMS Prescribed by: GUY ARREDONDO on 04/18/19 0207 Cyclobenzaprine HCl 5 Mg Tablet, 5 MG PO DAILY PRN for MUSCLE SPASMS Prescribed by: ELLA BELTRE on 08/27/19 2316 Hydrocodone Bit/Acetaminophen 1 Tab Tab, 1 EACH PO Q6H PRN for PAIN-MODERATE Prescribed by: GUY ARREDONDO on 04/18/19 0207 Hydrocodone/Acetaminophen 10 Ml Solution, 5 ML PO Q4H PRN for COUGH Prescribed by: LINDSAY ROA on 10/23/18 0106 Ibuprofen 800 Mg Tablet, 800 MG PO Q8H PRN for PAIN Prescribed by: GUY ARREDONDO on 04/18/19 020 Ondansetron 4 Mg Tab.rapdis, 4 MG PO Q6H PRN for NAUSEA/VOMITING Prescribed by: MARKUS LOPEZ on 08/22/19 011 Oseltamivir Phosphate 75 Mg Capsule, 1 CAP PO BID Prescribed by: SARAH CLINE on 04/16/09 011 Prednisone 50 Mg Tab, 50 MG PO DAILY Prescribed by: LINDSAY ROA on 10/23/18 010 Sulfamethoxazole/Trimethoprim 1 Each Tablet, 1 EACH PO BID Prescribed by: NASH ALVAREZ on 03/10/19 001 Patient Home Medication List Home Medication List Reviewed: Yes Review of Systems Constitutional: No chills, No diaphoresis EENTM: No ear discharge, No ear pain Respiratory: No cough, No short of breath Cardiovascular: No chest pain, No palpitations Gastrointestinal: No abdominal pain, No nausea Genitourinary: No discharge, No dysuria All Other Systems Reviewed Negative Unless Noted: Yes Past Rxdfjiw-Doxkwv-Pqitee Hx Patient Social History Alcohol Use: Denies Use Recreational Drug Use: No Smoking Status: Current Everyday Smoker Type Used: Cigarettes 2nd Hand Smoke Exposure: No Recent Foreign Travel: No Contact w/Someone Who Travel: No Recent Infectious Disease Expo: No Recent Hopitalizations: No Immunizations Up To Date Tetanus Booster (TDap): Unknown Seasonal Allergies Seasonal Allergies: No Past Medical History Surgeries: Yes Adenoidectomy, Gallbladder, Tonsillectomy Respiratory: Yes Asthma Cardiac: No Neurological: No Genitourinary: No Gastrointestinal: No Musculoskeletal: No Endocrine: No HEENT: No Cancer: No Psychosocial: Yes Anxiety, Depression Integumentary: No Blood Disorders: No Physical Exam Vital Signs Vital Signs - First Documented 09/08/19 20:17 Temp 36.7 Pulse 86 Resp 22 B/P (MAP) 141/86 (104) Pulse Ox 98 O2 Delivery Room Air Capillary Refill : Less Than 3 Seconds Height, Weight, BMI Height: 5'5.50" Weight: 334lbs. 0oz. 151.053071oa; 54.00 BMI Method:Stated General Appearance: mild distress, obese HEENT: PERRL/EOMI, pharynx normal Neck: full range of motion, normal inspection Cardiovascular: normal peripheral pulses, regular rate, rhythm Respiratory: no respiratory distress, no accessory muscle use Ankles: bilateral ankle non-tender, bilateral ankle normal inspection, bilateral ankle normal range of motion, bilateral ankle no evidence of injury Feet: right foot non-tender, right foot normal inspection; bilateral foot normal range of motion; right foot no evidence of injury; left foot bone tenderness, left foot pain Neurologic/Tendon: normal sensation, normal motor functions, normal tendon functions, responds to pain, no evidence tendon injury Neurologic/Psychiatric: no motor/sensory deficits, alert, normal mood/affect, oriented x 3 Skin: normal color, warm/dry Progress/Results/Core Measures Results/Orders My Orders Orders - TOM TREVIÑO Ketorolac Injection (Toradol Injection) (09/08/19 20:45) Rx-Hydrocodone/Apap 5-325 Mg (Rx-Vicodin (09/08/19 20:45) Vital Signs/I&O 09/08/19 20:17 Temp 36.7 Pulse 86 Resp 22 B/P (MAP) 141/86 (104) Pulse Ox 98 O2 Delivery Room Air Blood Pressure Mean: 104 Progress Progress Note : Time: 20:36 Progress Note Perhaps weightbearing is too much for her pain at this time so we'll put her on some crutches for a few days in addition to her boot. We'll also provide her with a few days' worth of hydrocodone and encourage her to follow-up with the orthopedic surgeon. Toradol shot tonight. Close examination of her foot does not reveal evidence for apartment syndrome or too much compression from her boot. Departure Impression Primary Impression: Fracture of foot Qualified Codes: S92.902D - Unspecified fracture of left foot, subsequent encounter for fracture with routine healing Disposition: 01 HOME, SELF-CARE Condition: Stable Departure-Patient Inst. Decision time for Depature: 20:46 Referrals: MORENITA GAMING MD (PCP/Family) Primary Care Physician Patient Instructions: Foot Fracture (DC) Add. Discharge Instructions: Continue to wear the boot at all times when weightbearing. You're going to be up for an extended amount of time then you may use the crutches for the first week to reduce pressure on the foot. For the first 2-3 days you should apply an ice pack for 20 minutes every 4 hours while awake to the foot to reduce swelling and pain. Keep the foot elevated whenever possible. Tylenol 650 mg every 6 hours as needed for pain. Additionally you may use ibuprofen 600 mg every 6 hours as needed for pain. If you're still having severe pain keeping you from being functional then you may use one tablet of hydrocodone every 6 hours. Hydrocodone will cause drowsiness and increase your risk of falls. Hydrocodone will cause constipation so you should take a stool softener such as Colace or laxative such as MiraLAX daily to prevent this. Please make follow-up appointments with the orthopedic surgeon as instructed. Light-duty restrictions of no lifting pushing or pulling more than 20 pounds for 2 weeks, until 09/22/19. All discharge instructions reviewed with patient and/or family. Voiced understanding. Scripts Hydrocodone Bit/Acetaminophen (Hydrocodone/Acetaminophen 5/325mg Tablet) 1 Tab T ab 1 EACH PO Q4-6HR PRN for PAIN-MODERATE MDD 10 for 3 Days, #8 TAB 0 Refills Prov: TOM TREVIÑO 09/08/19 Work/School Note: Work Release Form Date Seen in the Emergency Department: Sep 08, 2019 Return to Work: Sep 08, 2019 Restrictions: Need Release from Doctor Other Restrictions Listed Below: No lifting, pushing or pulling more than 20 pounds until 09/22/19. TOM TREVIÑO Sep 08, 2019 20:38
[2019-09-08] MEDS ORDERED: RX-HYDROCODONE/APAP 5/325 MG #4 TAB PK PO PRN (20:45)
[2019-09-08] MEDS ORDERED: KETOROLAC 60 MG/2 ML VIAL IM ONE (20:45)
[2019-09-08] MEDS ORDERED: ACHD5005 PO (20:49)
[2019-09-08] MEDS ORDERED: RX-HYDROCODONE/APAP 5/325 MG #4 TAB PK PO ONE (20:51)
[2019-09-08] MEDS ORDERED: KETOROLAC 60 MG/2 ML VIAL ONE (20:51)
[2019-09-08 21:02] VITALS: BP 141/86
== END 2019-09-08 21:02 | disposition home or self-care (01) ==
LOC: EDUNIT# 20:04 → ER FS 20:06
DX: S92.902D Unspecified fracture of left foot, subsequent encounter for fracture with routine healing (principal); J45.909 Unspecified asthma, uncomplicated; F41.9 Anxiety disorder, unspecified; F32.9 Major depressive disorder, single episode, unspecified; F17.210 Nicotine dependence, cigarettes, uncomplicated; Z79.52 Long term (current) use of systemic steroids; Z90.89 Acquired absence of other organs; X58.XXXA Exposure to other specified factors, initial encounter
CPT/HCPCS: 96372; 99284

== ENCOUNTER → 2019-09-13 | Outpatient (CLI) | payer OTHER ==
--- NOTE | 2019-09-13 09:22 | Diagnostic Imaging Report ---
INDICATION: Follow-up left foot fracture. Time of exam: 9:06 AM Correlation is made with prior radiograph from 09/03/2019. Obliquely oriented fracture of the distal 5th metatarsal is again noted. The fracture line remains clearly visible. No significant callus formation is seen. Alignment is stable. Remaining metatarsals and phalanges are intact. Midfoot and hindfoot are unremarkable. IMPRESSION: No significant change in the obliquely oriented distal 5th metatarsal fracture when compared with examination 10 days earlier. Dictated by: Dictated on workstation # [id number]
== END ==
LOC: RAD FS 08:56
PROVIDERS: ATTEND Family Medicine
DX: S92.355D Nondisplaced fracture of fifth metatarsal bone, left foot, subsequent encounter for fracture with routine healing (principal)
CPT/HCPCS: 73630

== ENCOUNTER 2020-07-01 21:42 | Emergency (ER) | payer MEDICAID, OTHER ==
--- NOTE | 2020-07-01 21:55 | ED General ---
General Stated Complaint: SPOTTING Source of Information: Patient, RN/MD, RN Notes Reviewed Exam Limitations: No Limitations History of Present Illness Date Seen by Provider: Jul 01, 2020 Time Seen by Provider: 21:45 Initial Comments This patient is a 24-year-old female presents to the emergency department complaining of vaginal bleeding. Patient states that she just had a positive test and had a beta hCG level drawn in the clinic that showed to 272 is the level. Patient started having some cramping and some mild spotting. This afternoon. Patient denies any significant cramping. I did discuss length with patient about options patient is aware we do not have ultrasound available in the emergency department. Patient requests that we repeat beta hCG level to see her levels are. We'll have nurses draw labs. Timing/Duration: 4-6 Hours Severity: Mild Associated Systoms: Denies Symptoms Allergies and Home Medications Allergies Coded Allergies: strawberry (Unverified Allergy, Mild, 10/23/18) latex (Verified Allergy, Unknown, RASH, 10/23/18) Home Medications Azithromycin 250 Mg Tablet, 250 MG PO DAILY Prescribed by: LINDSAY ROA on 10/23/18 010 Azithromycin 250 Mg Tablet, 250 MG PO UD TAKE 2 TABLETS ON DAY ONE THEN TAKE 1 TABLET DAILY FOR FOUR MORE DAYS Prescribed by: RADHA ALEJANDRO on 07/29/19 1550 Baclofen 10 Mg Tablet, 10 MG PO TID PRN for MUSCLE SPASMS Prescribed by: GUY ARREDONDO on 04/18/19206 Cyclobenzaprine HCl 5 Mg Tablet, 5 MG PO DAILY PRN for MUSCLE SPASMS Prescribed by: ELLA BELTRE on 08/27/19 2316 Hydrocodone Bit/Acetaminophen 1 Tab Tab, 1 EACH PO Q6H PRN for PAIN-MODERATE Prescribed by: GUY ARREDONDO on 04/18/19206 Hydrocodone Bit/Acetaminophen 1 Tab Tab, 1 EACH PO Q4-6HR PRN for PAIN-MODERATE Prescribed by: TOM TREVIÑO on 09/08/192048 Hydrocodone/Acetaminophen 10 Ml Solution, 5 ML PO Q4H PRN for COUGH Prescribed by: LINDSAY ROA on 10/23/18 010 Ibuprofen 800 Mg Tablet, 800 MG PO Q8H PRN for PAIN Prescribed by: GUY ARREDONDO on 04/18/19206 Ondansetron 4 Mg Tab.rapdis, 4 MG PO Q6H PRN for NAUSEA/VOMITING Prescribed by: MARKUS LOPEZ on 08/22/19 0111 Oseltamivir Phosphate 75 Mg Capsule, 1 CAP PO BID Prescribed by: SARAH CLINE on 04/16/09 0112 Prednisone 50 Mg Tab, 50 MG PO DAILY Prescribed by: LINDSAY ROA on 10/23/18 0105 Sulfamethoxazole/Trimethoprim 1 Each Tablet, 1 EACH PO BID Prescribed by: NASH ALVAREZ on 03/10/19 0018 Patient Home Medication List Home Medication List Reviewed: Yes Review of Systems Review of Systems Constitutional: No no symptoms reported, No see HPI, No chills, No diaphoresis, No dizziness, No fever, No malaise, No weakness, No weight gain, No weight loss, No other EENTM: No see HPI, No no symptoms reported, No ear discharge, No hearing loss, No ear pain, No blurred vision, No double vision, No eye pain, No tearing, No vision loss, No dental problems, No hoarseness, No mouth pain, No mouth swelling, No epistaxis, No nose congestion, No nose pain, No throat pain, No throat swelling, No other Respiratory: No no symptoms reported, No see HPI, No cough, No dyspnea on exertion, No hemoptysis, No orthopnea, No phlegm, No short of breath, No stridor, No wheezing, No other Cardiovascular: No no symptoms reported, No see HPI, No chest pain, No edema, No Hx of Intervention, No palpitations, No syncope, No vascular heart diseas, No other Gastrointestinal: No RUQ, No LUQ, No RLQ, No LLQ, No no symptoms reported, No see HPI, No abdominal pain, No constipation, No diarrhea, No dysphagia, No hematemesis, No heartburn, No jaundice, No loss of appetite, No melena, No nausea, No vomiting, No other Genitourinary: see HPI : Yes LMP: May 20, 2020 Skin: No no symptoms reported, No see HPI, No change in color, No change in hair/nails, No dryness, No hx of skin cancer, No lesions, No lumps, No pruritus, No rash, No other All Other Systems Reviewed Negative Unless Noted: Yes Past Hvzkcsr-Ruieln-Rxzkhe Hx Patient Social History Type Used: Cigarettes 2nd Hand Smoke Exposure: No Recent Foreign Travel: No Contact w/Someone Who Travel: No Recent Hopitalizations: No Immunizations Up To Date Tetanus Booster (TDap): Unknown Seasonal Allergies Seasonal Allergies: No Past Medical History Surgeries: Yes Adenoidectomy, Gallbladder, Tonsillectomy Respiratory: Yes Asthma Cardiac: No Neurological: No Genitourinary: No Gastrointestinal: No Musculoskeletal: No Endocrine: No HEENT: No Cancer: No Psychosocial: Yes Anxiety, Depression Integumentary: No Blood Disorders: No Physical Exam Vital Signs Vital Signs - First Documented 07/01/20 21:44 Temp 36.6 Pulse 126 Resp 18 B/P (MAP) 161/96 (117) Pulse Ox 98 O2 Delivery Room Air Capillary Refill : Height, Weight, BMI Height: 5'5.50" Weight: 334lbs. 0oz. 151.219080im; 54.00 BMI Method:Stated General Appearance: No Apparent Distress, WD/WN Cardiovascular: Regular Rate, Rhythm, No Edema, No Gallop, No JVD, No Murmur, Normal Peripheral Pulses Gastrointestinal: Normal Bowel Sounds, No Organomegaly, No Pulsatile Mass, Non Tender, Soft Neurologic/Psychiatric: Alert, Oriented x3, No Motor/Sensory Deficits, Normal Mood/Affect Progress/Results/Core Measures Suspected Sepsis SIRS Temperature: Pulse: Respiratory Rate: Laboratory Tests 07/01/20 21:55: White Blood Count 11.1H Blood Pressure / Mean: Laboratory Tests 07/01/20 21:55: Creatinine 0.58L, Platelet Count 280, Total Bilirubin 0.6 Results/Orders Lab Results Laboratory Tests Test 07/01/20 21:48 07/01/20 21:55 Range/Units Urine Color YELLOW Urine Clarity SLT CLOUDY Urine pH 6.0 5-9 Urine Specific [place] 1.010 L 1.016-1.022 Urine Protein NEGATIVE NEGATIVE Urine Glucose (UA) NEGATIVE NEGATIVE Urine Ketones NEGATIVE NEGATIVE Urine Nitrite NEGATIVE NEGATIVE Urine Bilirubin NEGATIVE NEGATIVE Urine Urobilinogen 0.2 < = 1.0 MG/DL Urine Leukocyte Esterase NEGATIVE NEGATIVE Urine RBC (Auto) 2+ H NEGATIVE Urine RBC NONE /HPF Urine WBC RARE /HPF Urine Squamous Epithelial Cells 5-10 /HPF Urine Crystals NONE /LPF Urine Bacteria TRACE /HPF Urine Casts NONE /LPF Urine Mucus NEGATIVE /LPF Urine Culture Indicated NO White Blood Count 11.1 H 4.3-11.0 10^3/uL Red Blood Count 4.42 4.35-5.85 10^6/uL Hemoglobin 13.5 11.5-16.0 G/DL Hematocrit 40 35-52 % Mean Corpuscular Volume 90 80-99 FL Mean Corpuscular Hemoglobin 31 25-34 PG Mean Corpuscular Hemoglobin Concent 34 32-36 G/DL Red Cell Distribution Width 13.0 10.0-14.5 % Platelet Count 280 130-400 10^3/uL Mean Platelet Volume 9.4 7.4-10.4 FL Immature Granulocyte % (Auto) 0 % Neutrophils (%) (Auto) 72 42-75 % Lymphocytes (%) (Auto) 17 12-44 % Monocytes (%) (Auto) 6 0-12 % Eosinophils (%) (Auto) 4 0-10 % Basophils (%) (Auto) 0 0-10 % Neutrophils # (Auto) 8.0 H 1.8-7.8 X 10^3 Lymphocytes # (Auto) 1.9 1.0-4.0 X 10^3 Monocytes # (Auto) 0.6 0.0-1.0 X 10^3 Eosinophils # (Auto) 0.5 H 0.0-0.3 10^3/uL Basophils # (Auto) 0.0 0.0-0.1 10^3/uL Immature Granulocyte # (Auto) 0.0 0.0-0.1 10^3/uL Sodium Level 140 135-145 MMOL/L Potassium Level 3.8 3.6-5.0 MMOL/L Chloride Level 107 98-107 MMOL/L Carbon Dioxide Level 20 L 21-32 MMOL/L Anion Gap 13 5-14 MMOL/L Blood Urea Nitrogen 6 L 7-18 MG/DL Creatinine 0.58 L 0.60-1.30 MG/DL Estimat Glomerular Filtration Rate > 60 BUN/Creatinine Ratio 10 Glucose Level 105 70-105 MG/DL Calcium Level 9.0 8.5-10.1 MG/DL Corrected Calcium 8.9 8.5-10.1 MG/DL Total Bilirubin 0.6 0.1-1.0 MG/DL Aspartate Amino Transf (AST/SGOT) 29 5-34 U/L Alanine Aminotransferase (ALT/SGPT) 60 H 0-55 U/L Alkaline Phosphatase 54 40-136 U/L Total Protein 6.6 6.4-8.2 GM/DL Albumin 4.1 3.2-4.5 GM/DL Human Chorionic Gonadotropin, Quant 3990 H <5 MIU/ML My Orders Orders - LINDSAY ARREDONDO MD Urinalysis (07/01/20 21:51) Cbc With Automated Diff (07/01/20 21:51) Comprehensive Metabolic Panel (07/01/20 21:51) Hcg,Quantitative (07/01/20 21:51) Vital Signs/I&O 07/01/20 21:44 Temp 36.6 Pulse 126 Resp 18 B/P (MAP) 161/96 (117) Pulse Ox 98 O2 Delivery Room Air Capillary Refill : Progress Note : Time: 22:46 Progress Note Beta hCG level is greater than 3900. I did discuss at length with patient about unavailability of ultrasound. Patient's instructed follow-up with her MANAGER GAMING in the next 1-2 days for further evaluation and treatment. May also present to either [facility] or [facility] that she is concerned that she needs an ultrasound. Patient understands that due to early nature of possible difficult to say if is viable or this is just vaginal bleeding in early . Patient given instructions she'll be discharged ashley e. Patient states she understands risk and concerns. Departure Impression Primary Impression: Vaginal bleeding affecting early Disposition: 01 HOME, SELF-CARE Condition: Stable Departure-Patient Inst. Decision time for Depature: 22:47 Referrals: MORENITA GAMING MD (PCP) Primary Care Physician MATT MONTANEZ MD (Family) Primary Care Physician Patient Instructions: Bleeding With (DC) Add. Discharge Instructions: Avoid Motrin or other nonsteroidal pain medications. Encourage by mouth fluids. Monitor bleeding closely. Follow-up with your MANAGER GAMING and/or present to [facility] or [facility] for possible MANAGER GAMING evaluation via ultrasound. LINDSAY ARREDONDO MD Jul 01, 2020 21:55
[2020-07-01 22:07] LABS: CLARITY,URINE SLT CLOUDY; COLOR,URINE YELLOW; GLUCOSE, URINE (UA) NEGATIVE (NEGATIVE); PROTEIN,URINE NEGATIVE (NEGATIVE)
[2020-07-01 22:08] LABS: BACTERIA,URINE TRACE /HPF; BILIRUBIN,URINE NEGATIVE (NEGATIVE); KETONES,URINE NEGATIVE (NEGATIVE); LEUKOCYTE ESTERASE ,URINE NEGATIVE (NEGATIVE); NITRITE,URINE NEGATIVE (NEGATIVE); WBC,URINE RARE /HPF
[2020-07-01 22:10] LABS: BASOPHILS % (AUTO) 0 % (0-10); EOSINOPHILS % (AUTO) 4 % (0-10); HEMATOCRIT 40 % (35-52); HEMOGLOBIN 13.5 G/DL (11.5-16.0); LYMPHOCYTES % (AUTO) 17 % (12-44); MEAN CORPUSCULAR HEMOGLOBIN 31 PG (25-34); MEAN CORPUSCULAR HGB CONC 34 G/DL (32-36); MEAN CORPUSCULAR VOLUME 90 FL (80-99); MEAN PLATELET VOLUME 9.4 FL (7.4-10.4); MONOCYTES % (AUTO) 6 % (0-12); NEUTROPHILS % (AUTO) 72 % (42-75); PLATELET COUNT 280 10^3/uL (130-400); WHITE BLOOD COUNT 11.1 10^3/uL (4.3-11.0)
[2020-07-01 22:11] LABS: EOSINOPHILS # (AUTO) 0.5 10^3/uL (0.0-0.3); LYMPHOCYTES # (AUTO) 1.9 X 10^3 (1.0-4.0); MONOCYTES # (AUTO) 0.6 X 10^3 (0.0-1.0)
[2020-07-01 22:40] LABS: CARBON DIOXIDE 20 MMOL/L (21-32); CHLORIDE 107 MMOL/L (98-107); POTASSIUM 3.8 MMOL/L (3.6-5.0); SODIUM 140 MMOL/L (135-145)
[2020-07-01 22:41] LABS: ALANINE AMINOTRANSFERASE 60 U/L (0-55); ALBUMIN 4.1 GM/DL (3.2-4.5); ALKALINE PHOSPHATASE 54 U/L (40-136); BILIRUBIN,TOTAL 0.6 MG/DL (0.1-1.0); BUN/CREATININE RATIO 10; CREATININE SERUM 0.58 MG/DL (0.60-1.30); GFR ESTIMATED > 60; GLUCOSE 105 MG/DL (70-105); TOTAL PROTEIN 6.6 GM/DL (6.4-8.2)
[2020-07-01 22:52] VITALS: BP 155/90
== END 2020-07-01 22:52 | disposition home or self-care (01) ==
LOC: EDUNIT# 21:42 → ER FS 21:44
DX: O20.9 Hemorrhage in early pregnancy, unspecified (principal); O99.519 Diseases of the respiratory system complicating pregnancy, unspecified trimester; J45.909 Unspecified asthma, uncomplicated; Z91.040 Latex allergy status; Z79.52 Long term (current) use of systemic steroids; Z3A.00 Weeks of gestation of pregnancy not specified
CPT/HCPCS: 36415; 80053; 81000; 84702; 85025; 99282

== ENCOUNTER → 2020-07-04 | Outpatient (CLI) | payer MEDICAID | LOC: LAB FS 12:07 | PROVIDERS: ATTEND Family Medicine | DX: N92.6 Irregular menstruation, unspecified (principal) | CPT/HCPCS: 36415; 84702 ==

== ENCOUNTER → 2020-07-31 | Outpatient (CLI) | payer MEDICAID ==
[2020-07-31 17:21] LABS: HEMATOCRIT 39 % (35-52); HEMOGLOBIN 13.3 G/DL (11.5-16.0); MEAN CORPUSCULAR HEMOGLOBIN 30 PG (25-34); MEAN CORPUSCULAR HGB CONC 34 G/DL (32-36); MEAN CORPUSCULAR VOLUME 88 FL (80-99); MEAN PLATELET VOLUME 9.4 FL (7.4-10.4); PLATELET COUNT 263 10^3/uL (130-400); WHITE BLOOD COUNT 10.3 10^3/uL (4.3-11.0)
[2020-07-31 17:22] LABS: BASOPHILS # (AUTO) 0.1 10^3/uL (0.0-0.1); BASOPHILS % (AUTO) 1 % (0-10); EOSINOPHILS # (AUTO) 0.4 10^3/uL (0.0-0.3); EOSINOPHILS % (AUTO) 4 % (0-10); LYMPHOCYTES # (AUTO) 1.8 X 10^3 (1.0-4.0); LYMPHOCYTES % (AUTO) 18 % (12-44); MONOCYTES # (AUTO) 0.6 X 10^3 (0.0-1.0); MONOCYTES % (AUTO) 5 % (0-12); NEUTROPHILS # (AUTO) 7.5 X 10^3 (1.8-7.8); NEUTROPHILS % (AUTO) 73 % (42-75)
[2020-08-01 21:32] LABS: HEPATITIS C ANTIBODY C Non-Reactive (Non-Reactive)
== END ==
LOC: LAB FS 16:27
PROVIDERS: ATTEND Family Medicine
DX: Z34.91 Encounter for supervision of normal pregnancy, unspecified, first trimester (principal); Z3A.00 Weeks of gestation of pregnancy not specified
CPT/HCPCS: 36415; 80055; 86703; 86762; 86803; 87088

== ENCOUNTER → 2020-09-25 | Outpatient (CLI) | payer MEDICAID | LOC: LAB FS 10:24 | PROVIDERS: ATTEND Family Medicine | DX: O09.92 Supervision of high risk pregnancy, unspecified, second trimester (principal); Z3A.00 Weeks of gestation of pregnancy not specified | CPT/HCPCS: 36415; 82105; 82677; 84702; 86336 ==

== ENCOUNTER → 2020-10-14 | Outpatient (CLI) | payer MEDICAID ==
--- NOTE | 2020-10-14 15:10 | Diagnostic Imaging Report ---
INDICATION: survey. TECHNIQUE: Multiple real-time grayscale images were obtained over the gravid uterus. COMPARISON: None. FINDINGS: There is a single live fetus in a cephalic presentation. heart rate was recorded at 147 BPM. Placenta is posterior. No previa is identified. survey demonstrated bladder and stomach to be unremarkable. The kidneys were suboptimally evaluated due to patient body habitus. The brain is unremarkable. There is a four-chamber heart. There is a three-vessel cord with normal insertion. spine is unremarkable. Biometrical measurements are as follows: Biparietal 5.13 cm, age 21 weeks 4 days. Head circumference 17.49 cm, age 20 weeks 2 days. Abdominal circumference 15.51 cm, age 20 weeks 5 days. Femur length 3.38 cm, age 20 weeks 5 days. Sonographic estimate age: 20 weeks 6 days. Sonographic estimated date of delivery: 02/25/2021. Estimated Weight: 368 gm (+/- 54 gm). LMP percentile: 34%. heart rate: 147 beats per minute. number: 1 of 1. IMPRESSION: Single live IUP of 20 weeks 6 days gestational age. Estimated date of confinement sonographically is 02/25/2021. Dictated by: Dictated on workstation # [id number]
== END ==
LOC: RAD FS 13:42
PROVIDERS: ATTEND Family Medicine
DX: O09.92 Supervision of high risk pregnancy, unspecified, second trimester (principal); Z3A.20 20 weeks gestation of pregnancy
CPT/HCPCS: 76805

== ENCOUNTER 2020-11-26 20:31 | Outpatient (CLI) | payer MEDICAID ==
[~2020-11-26] VITALS: Ht 167.7 cm; Wt 155.5 kg
[2020-11-26 21:11] LABS: BILIRUBIN,URINE NEGATIVE (NEGATIVE); CLARITY,URINE CLEAR; COLOR,URINE YELLOW; GLUCOSE, URINE (UA) NEGATIVE (NEGATIVE); KETONES,URINE NEGATIVE (NEGATIVE); LEUKOCYTE ESTERASE ,URINE NEGATIVE (NEGATIVE); NITRITE,URINE NEGATIVE (NEGATIVE); PH,URINE 6.5 (5-9); PROTEIN,URINE NEGATIVE (NEGATIVE)
[2020-11-26 21:15] VITALS: BP 127/60
[2020-11-26 21:21] VITALS: BP 127/60
[2020-11-26 21:27] LABS: AMORPHOUS SEDIMENT,UR RARE AMOR URATES /LPF; BACTERIA,URINE NEGATIVE /HPF
[2020-11-26] MEDS ORDERED: PNV11TAB5 PO (21:41)
[2020-11-26 21:50] VITALS: BP 127/60
--- NOTE | 2020-11-27 11:11 | Physician Query-Final Dx ---
RACQUEL ESPOSITO 11/27/20 1111: Clinic Account Progress/Dx Physician Query: Please give diagnosis Please include # weeks gestation Date of Service Nov 26, 2020 at 20:31 ALEXANDER CAMPBELL DO 11/27/20 2134: Clinic Account Progress/Dx DIAGNOSIS: Diagnosis decreased movement 25 week gestation RACQUEL ESPOSITO Nov 27, 2020 11:11 ALEXANDER CAMPBELL DO Nov 27, 2020 21:34
== END 2020-11-26 21:50 | disposition home or self-care (01) ==
LOC: WSo 20:31 → LDRP 20:31 → WSo 21:50
PROVIDERS: ATTEND Obstetrics & Gynecology
DX: O34.62 Maternal care for abnormality of vagina, second trimester (principal); O36.8120 Decreased fetal movements, second trimester, not applicable or unspecified; Z3A.25 25 weeks gestation of pregnancy
CPT/HCPCS: 81000; 87088; G0463; 99212

== ENCOUNTER 2020-12-01 16:47 | Outpatient (CLI) | payer MEDICAID ==
[~2020-12-01] VITALS: Ht 167.7 cm; Wt 155.5 kg
[~2020-12-01 16:47] MED LIST changes: +PNV11TAB5 PO
[2020-12-01 18:04] VITALS: BP 124/75
[2020-12-01 18:06] VITALS: BP 124/75
--- NOTE | 2020-12-02 07:34 | Physician Query-Final Dx ---
Clinic Account Progress/Dx Physician Query: Please give diagnosis Please include # weeks gestation Date of Service Dec 01, 2020 at 16:47 RACQUEL ESPOSITO Dec 02, 2020 07:34
== END 2020-12-01 18:29 | disposition home or self-care (01) ==
LOC: LDRP 16:47 → WSo 16:47
PROVIDERS: ATTEND Family Medicine
DX: O26.899 Other specified pregnancy related conditions, unspecified trimester (principal); Z3A.00 Weeks of gestation of pregnancy not specified

== ENCOUNTER → 2020-12-09 | Outpatient (CLI) | payer MEDICAID ==
[2020-12-09 12:26] LABS: HEMOGLOBIN 10.8 G/DL (11.5-16.0); WHITE BLOOD COUNT 12.7 10^3/uL (4.3-11.0)
== END ==
LOC: LAB FS 11:56
PROVIDERS: ATTEND Family Medicine
DX: Z34.02 Encounter for supervision of normal first pregnancy, second trimester (principal); Z3A.00 Weeks of gestation of pregnancy not specified
CPT/HCPCS: 36415; 82950; 85027; 86592

== ENCOUNTER → 2020-12-23 | Outpatient (CLI) | payer MEDICAID ==
--- NOTE | 2020-12-23 13:19 | Diagnostic Imaging Report ---
INDICATION: Large for gestational age. TECHNIQUE: Multiple Real-time grayscale images were obtained over the gravid uterus. COMPARISON: 10/14/2020. FINDINGS: The previous OB ultrasound exam performed on 10/14/2020 noted a single live fetus of approximately 20 weeks 6 days gestation +/- 1 week. There were no abnormalities identified; however, the kidneys were suboptimally evaluated due to the patient's body habitus. On this study, the fetus is again evident. The fetus is in transverse presentation with the head on the maternal left. heart motion was noted and a rate of 146 BPM was recorded. There are no abnormalities noted. The kidneys are still not optimally visualized but there is no definite renal abnormality noted. The placenta is posterior and there is no previa. The amniotic fluid volume is within normal limits. By the previous exam, the estimated gestational age is 33 weeks 1 day +/- 1.5 weeks. Since the prior study, the growth parameters have progressed as expected, however, tending towards the high side of normal. The estimated weight is at the 91st percentile. Biometrical measurements are as follows: Biparietal 8.30 cm, age 33 weeks 3 days. Head circumference 30.58 cm, age 34 weeks 1 days. Abdominal circumference 28.44 cm, age 32 weeks 4 days. Femur length 6.21 cm, age 32 weeks 2 days. Sonographic estimate age: 33 weeks 1 days. Sonographic estimated date of delivery: 02/09/2021. Estimated Weight: 2014 gm (+/- 294 gm). LMP percentile: 91%. heart rate: 146 beats per minute. number: 1 of 1. IMPRESSION: 1. There is a single live fetus of approximately 33 weeks 1 day gestation +/- 1.5 weeks. The EDC remains 02/25/2021. 2. There were no abnormalities identified although the kidneys were still not well visualized. 3. The growth parameters have progressed since the prior exam but tending towards the high side of normal. The estimated weight is now in the 91st percentile. Dictated by: Dictated on workstation # [id number]
== END ==
LOC: RAD FS 12:02
PROVIDERS: ATTEND Family Medicine
DX: O36.63X0 Maternal care for excessive fetal growth, third trimester, not applicable or unspecified (principal); O35.8XX9 Maternal care for other (suspected) fetal abnormality and damage, other fetus; Z3A.33 33 weeks gestation of pregnancy
CPT/HCPCS: 76805

== ENCOUNTER 2021-02-05 18:40 | Outpatient (CLI) | payer MEDICAID ==
[~2021-02-05] VITALS: Ht 167.7 cm; Wt 156.4 kg
[2021-02-05 19:10] VITALS: BP 124/70
[2021-02-05 19:30] VITALS: BP 124/70
[2021-02-05 20:24] LABS: BILIRUBIN,URINE NEGATIVE (NEGATIVE); CLARITY,URINE CLEAR; COLOR,URINE DARK YELLOW; GLUCOSE, URINE (UA) NEGATIVE (NEGATIVE); KETONES,URINE TRACE (NEGATIVE); LEUKOCYTE ESTERASE ,URINE TRACE (NEGATIVE); NITRITE,URINE NEGATIVE (NEGATIVE); PH,URINE 6.5 (5-9); PROTEIN,URINE TRACE (NEGATIVE)
[2021-02-05 20:32] LABS: RBC,URINE RARE /HPF
[2021-02-05 20:33] LABS: BACTERIA,URINE MODERATE /HPF
[2021-02-05] MEDS ORDERED: CEPH500T PO (20:55)
--- NOTE | 2021-02-06 07:45 | Physician Query-Final Dx ---
RACQUEL ESPOSITO 02/06/21 0745: Clinic Account Progress/Dx Physician Query: Please give diagnosis Please include # weeks gestation Date of Service Feb 05, 2021 at 18:40 ALEJANDRO SCANLON DO 02/07/21 0706: Clinic Account Progress/Dx DIAGNOSIS: Diagnosis 37 week IUP with decreased movement Uncomplicated UTI Pelvic pains RACQUEL ESPOSITO Feb 06, 2021 07:45 ALEJANDRO SCANLON DO Feb 07, 2021 07:06
== END 2021-02-05 21:00 | disposition home or self-care (01) ==
LOC: WSo 18:40 → LDRP 19:27 → WSo 21:00
PROVIDERS: ATTEND Obstetrics & Gynecology
DX: O26.893 Other specified pregnancy related conditions, third trimester (principal); M54.9 Dorsalgia, unspecified; Z3A.37 37 weeks gestation of pregnancy
CPT/HCPCS: 81000; 87088; G0463; 99214

== ENCOUNTER 2021-02-15 00:08 | Outpatient (CLI) | payer MEDICAID ==
[~2021-02-15] VITALS: Ht 167.7 cm; Wt 152.7 kg
[~2021-02-15 00:08] MED LIST changes: +CEPH500T PO
[2021-02-15 00:25] VITALS: BP 106/57
[2021-02-15 00:45] VITALS: BP 106/57
[2021-02-15 02:11] VITALS: BP 106/57
--- NOTE | 2021-02-17 08:00 | Physician Query-Final Dx ---
RACQUEL ESPOSITO 02/17/21 0800: Clinic Account Progress/Dx Physician Query: Please give diagnosis Please include # weeks gestation Date of Service Feb 15, 2021 at 00:08 FRANKY EMMANUEL MD 02/19/21 1802: Clinic Account Progress/Dx DIAGNOSIS: Diagnosis 38 weeks with false labor RACQUEL ESPOSITO Feb 17, 2021 08:00 FRANKY EMMANUEL MD Feb 19, 2021 18:02
== END 2021-02-15 02:00 | disposition home or self-care (01) ==
LOC: WSo 00:08 → LDRP 00:09 → WSo 02:00
PROVIDERS: ATTEND Obstetrics & Gynecology
DX: O26.899 Other specified pregnancy related conditions, unspecified trimester (principal); Z3A.00 Weeks of gestation of pregnancy not specified
CPT/HCPCS: 99213

== ENCOUNTER 2021-02-17 20:21 | Inpatient (IN) | payer MEDICAID ==
[~2021-02-17] VITALS: Ht 167.7 cm; Wt 151.5 kg
[2021-02-17] MEDS ORDERED: TERBUTALINE INJ 1 MG/ML (BRETHINE) AMP SC PRN (21:15)
--- NOTE | 2021-02-17 21:39 | History & Physical-OB ---
OB - Chief Complaint & HPI Date/Time Date of Admission: Date of Admission: Feb 17, 2021 at 20:21 Date seen by a Provider: Feb 17, 2021 Time Seen by a Provider: 21:30 Chief Complaint/History OB-Reason for Admission/Chief: Induction of Labor Hx : 1 Hx Para: 0 Expected Date of Delivery: Feb 25, 2021 Gestational Age in Weeks: 38 Gestational Age in Days: 6 Indication for induction: maternal distance, other (social; morbid obesity) Other reason for admission: This is a patient that has been managed by Dr. Salmeron who presented to my office for ob visit Admission Nurse Assessment Rev: Yes History of Labs A+/- Rub I VDRL NR HbSAg- GBS - Hep C - Allergies and Home Medications Allergies Coded Allergies: strawberry (Unverified Allergy, Mild, 02/15/21) latex (Verified Allergy, Unknown, RASH, 02/15/21) Home Medications Cephalexin 500 Mg Tablet, 500 MG PO QID Prescribed by: DEYSI HOPKINS on 02/05/212054 Ivl919/FA/Omega3/Dha/Fish Oil 1 Each Tab.chew, 1 EACH PO DAILY, (Reported) Patient Home Medication List Home Medication List Reviewed: Yes OB - History Hx of Present Ultrasounds: Normal mid trimester US Obstetrical Complications: None Medical Complications: None Information Pre-Hospital Medication Admins: Recently treated with cephalexin for UTI Induced Hypertension: No Maternal Gestational Diabetes: No Hemorrhage: No Obstetrical History Hx : 1 Hx Para: 0 Hx # Term Pregnancies: 0 Hx # Pregnancies: 0 Number of Living Children: 0 Hx Termination: No Hx Multiple Gestation: No Hx Ectopic : No Hx Stillbirth: No Hx Complication: No Hx Induced Hypertens: No Hx Maternal Gestational Diabet: No Hx Hemorrhage: No Patient Past Medical History NC Social History/Family History Alcohol Use: Denies Use Recreational Drug Use: No Smoking Cessation: Never smoker 2nd Hand Smoke Exposure: No Immunizations Tetanus Booster (TDap): Less than 5yrs (12/19/2020) Rubella: immune RPR/VDRL: Negative GBS Status: Negative OB - Admission Exam Physical Exam Vitals: 129/83 36.1 P 85 Heart: Rhythm Normal Lungs: Clear Abdomen: Gravid Extremities: Edema Reflexes: Normal Cervical Dilatation: Fingertip Effacement: 25% Station: -3 Membranes: Intact Heart Rate: 130's Accelerations: Accelerations Present Decelerations: No Decelerations Short Term Variability: Present Event Organizer Variability: Minimal (3-5) Contractions on Admission: >10 Minutes Apart OB - Assessment/Plan/Diagnosis Assessment Assessment: induction of labor Admission Dx Induction of labor at 39 weeks social induction morbid obesity Admission Status: Inpatient Order (span 2 midnights) Reason for Inpatient Admission: Induction LAbor Plan Plan: Induction Induction Method: per Misoprostol Protocol (Admit for misoprostol cervical ripening.) ALEXANDER CAMPBELL DO Feb 17, 2021 21:38
[2021-02-17 22:25] LABS: CLARITY,URINE CLEAR; COLOR,URINE YELLOW; GLUCOSE, URINE (UA) NEGATIVE (NEGATIVE); KETONES,URINE 1+ (NEGATIVE); LEUKOCYTE ESTERASE ,URINE NEGATIVE (NEGATIVE); NITRITE,URINE NEGATIVE (NEGATIVE); PROTEIN,URINE 2+ (NEGATIVE)
[2021-02-17 22:37] LABS: BACTERIA,URINE LARGE /HPF; CALCIUM OXALATE CRYSTALS,UR FEW /LPF; WBC,URINE 0-2 /HPF
[2021-02-17 22:40] LABS: BILIRUBIN,URINE 1+ (NEGATIVE)
[2021-02-17 23:00] VITALS: BP 113/40
[2021-02-17 23:30] LABS: BASOPHILS # (AUTO) 0.1 10^3/uL (0.0-0.1); BASOPHILS % (AUTO) 0 % (0-10); EOSINOPHILS # (AUTO) 0.1 10^3/uL (0.0-0.3); EOSINOPHILS % (AUTO) 1 % (0-10); HEMATOCRIT 37 % (35-52); HEMOGLOBIN 12.3 g/dL (11.5-16.0); LYMPHOCYTES # (AUTO) 1.7 10^3/uL (1.0-4.0); LYMPHOCYTES % (AUTO) 12 % (12-44); MEAN CORPUSCULAR HEMOGLOBIN 30 pg (25-34); MEAN CORPUSCULAR HGB CONC 34 g/dL (32-36); MEAN CORPUSCULAR VOLUME 90 fL (80-99); MEAN PLATELET VOLUME 9.8 fL (9.0-12.2); MONOCYTES # (AUTO) 0.8 10^3/uL (0.0-1.0); MONOCYTES % (AUTO) 6 % (0-12); NEUTROPHILS # (AUTO) 11.5 10^3/uL (1.8-7.8); NEUTROPHILS % (AUTO) 80 % (42-75); PLATELET COUNT 235 10^3/uL (130-400); WHITE BLOOD COUNT 14.3 10^3/uL (4.3-11.0)
[2021-02-18] VITALS (59 sets, daily range): BP systolic 99–149; BP diastolic 40–88
[2021-02-18] MEDS: D5 LR IV SOLUTION 1,000 ML IV SCH ×3 (00:15→15:31)
[2021-02-18] MEDS: LACTATED RINGERS 1,000 ML IV SCH ×2 (00:15→08:33)
[2021-02-18] MEDS ORDERED: ACETAMINOPHEN 500 MG TAB (TYLENOL) ONE (04:05)
[2021-02-18] MEDS: ACETAMINOPHEN 500 MG TAB (TYLENOL) PO PRN ×2 (04:06→07:01)
[2021-02-18] MEDS ORDERED: ONDANSETRON 4 MG/2 ML (SDV) Z0FRAN IVP ONE (06:45)
[2021-02-18] MEDS ORDERED: ONDANSETRON 4 MG/2 ML (SDV) Z0FRAN ONE ×2 (06:48→17:24)
[2021-02-18] MEDS ORDERED: fentaNYL 2 mcg/ml BUPIVA 0.125 100 ML ONE (08:35)
[2021-02-18] MEDS ORDERED: LACTATED RINGERS 1,000 ML IV SCH ×2 (08:45→11:00)
--- NOTE | 2021-02-18 08:49 | OB Triage Report ---
Standard Progress Note Progress Notes/Assess & Plan Date Seen by a Provider: Feb 18, 2021 Time Seen by a Provider: 08:00 Expected Date of Delivery: Feb 25, 2021 Gestational Age in Weeks: 39 Gestational Age in Days: 0 LMP/ALICIA Comment: 02/25/21 IS edc Progress/Assessment & Plan Misoprostol x 1 last night. Difficult to trace due to body habitus and repositioning. Had decreased variability and some subtle decelerations (only after getting up to bathroom) but overall tracing was reassuring. Again, quite difficult to trace due to habitus 2nd miso was held due to this. Then she had SROM with clear fluid. Complains of back pain in a regular pattern. Unable to trace adequately but she says they are every few minutes. Tylenol was given for back pain and she promptly threw it up and said she felt better. She was then given Zofran and repeated the tylenol about 4 hours later (she vomited the pills) BP 138/82 SVE 1/90/-3 clear fluid Contractions every 3-4 minutes and moderate FHT 140-150. FSE placed and variability is easier to picking supervisor. Some accels noted. no decels currently Will had epidural placed and then augment as needed with pitocin. Final Diagnosis 1. 39 week gestation 2. Induction of labor 3. Morbid obesity ALEXANDER CAMPBELL DO Feb 18, 2021 08:49
[2021-02-18] MEDS ORDERED: BUPIVACAINE 0.25% 30 ML (SENSORCAINE) VIAL ONE (09:17)
[2021-02-18] MEDS ORDERED: fentaNYL INJ 100 MCG/2 ML AMP ONE ×2 (09:17→17:25)
[2021-02-18] MEDS ORDERED: EPIDURAL (fentaNYL 2 MCG/ML BUPIVA 0.125%)100 ML BAG EPI PRN (11:00)
[2021-02-18] MEDS ORDERED: ONDANSETRON 4 MG/2 ML (SDV) Z0FRAN IV PRN ×2 (11:00→20:00)
[2021-02-18] MEDS ORDERED: METOCLOPRAMIDE INJ 10 MG/2 ML (REGLAN) IV PRN ×2 (11:00→20:00)
[2021-02-18] MEDS ORDERED: diphenhydrAMINE 50 MG/ML INJ (BENADRYL) IV PRN ×2 (11:00→20:00)
[2021-02-18] MEDS ORDERED: NALOXONE 0.4 MG/ML 1 ML (NARCAN) VIAL IV PRN ×4 (11:00→20:00)
[2021-02-18] MEDS ORDERED: OXYTOCIN PRE-MIX DRIP 500 ML IV SCH ×2 (13:15→19:45)
[2021-02-18] MEDS ORDERED: AZITHROMYCIN INJECTION 500 MG in NS (IVPB) 250 ML IV NR (17:15)
[2021-02-18] MEDS ORDERED: ceFAZolin 2 GM IV Premixed 50 ML IV NR (17:15)
--- NOTE | 2021-02-18 17:17 | OB Triage Report ---
Standard Progress Note Progress Notes/Assess & Plan Date Seen by a Provider: Feb 18, 2021 Time Seen by a Provider: 17:10 Expected Date of Delivery: Feb 25, 2021 Gestational Age in Weeks: 39 Gestational Age in Days: 0 LMP/ALICIA Comment: 02/25/21 IS edc Progress/Assessment & Plan When received epidural had intrathecal placement. This caused some decrease in BP and variable decelerations. This resolved without problem. Pitoscin was started for augmentation. However, despite adequate contractions (IUPC) and pitocin, cervix is still 3 cm dilated. Might consider continuing, however, there continue to be variable decelerations and there is little fluid delivery is not imminent. Will plan for section due to arrest of dilitation/non reassuring hearttones, remote from delivery. Proper consents obtained. Risks of bleeding, infection, injury to bowel, bladder and ureter have been explained. Will use Ancef prophylactically and azithromycin as there are ruptured membranes. Also prophylactice SCDs and Lovenox post operatively for DVT prophylaxis. ALEXANDER CAMPBELL DO Feb 18, 2021 17:17
[2021-02-18] MEDS ORDERED: OXYTOCIN PRE-MIX DRIP 1,000 ML IV ONE (17:24)
[2021-02-18] MEDS ORDERED: CITRIC ACID/SOB CIT (BICITRA) 30 ML UDC ONE (17:28)
[2021-02-18] MEDS ORDERED: FAMOTIDINE 20MG/2ML IV (PEPCID) ONE (17:28)
[2021-02-18] MEDS ORDERED: TERBUTALINE INJ 1 MG/ML (BRETHINE) AMP ONE (17:34)
[2021-02-18] MEDS ORDERED: TERBUTALINE INJ 1 MG/ML (BRETHINE) AMP SC ONE (17:45)
[2021-02-18] MEDS ORDERED: PHENYLEPHRINE 100 MCG/ML 10 ML (ANESTHESIA) SYR ONE (19:07)
[2021-02-18] MEDS ORDERED: KETOROLAC 30 MG/ML VIAL ONE (19:43)
[2021-02-18] MEDS ORDERED: morphine INJ 4 MG/ML 1 ML (VIAL/SYRINGE) IVP PRN (19:45)
[2021-02-18] MEDS ORDERED: TETANUS,DIPTH,PERTUSS P/F (BOOSTRIX) 0.5 ML VIAL IM SCH (19:45)
[2021-02-18] MEDS ORDERED: MEASLES,MUMPS,RUBELLA 1 EA INJ SC SCH (19:45)
--- NOTE | 2021-02-18 19:55 | Cesarean Section Operative ---
Procedure Procedure Note Pre-operative Diagnosis: Robbie Mckenna is a 25 /Para 1 / 0, Gestational Age 39 weeks, arrest of dilitation, non-reassuring heart tracing Post-operative Diagnosis: same, meconium, OP presentation, triple nuchal cord Procedure: Primary low transverse section Physician: ALEXANDER CAMPBELL Estimated blood loss: 600 mL Disposition: stable cord pH: 7.22 Findings: Viable male infant, Apgars 8/9, weight 7$4 ounces, intact placenta, 3vc, normal appearing uterus, tubes, and ovaries. nuchal cord x 3 loose. long cord Indications:Robbie Mckenna is a 25 /Para 1 / 0,Gestational Age 39 weeks, arrest of dilitation, non-reassuring heart tracing Procedure Details: The patient was seen in pre-op and the procedure was discussed with the patient in full, including the risks, benefits, and alternatives. All questions were answered. The patient was taken to the operating room and a time out was performed, verifying patient and procedure. After spinal anesthesia was placed by our anesthesia colleagues, the patient was placed in the dorsal supine with leftward tilt for uterine displacement.~ Her abdomen was then prepped and draped in the typical sterile fashion. A Pfannenstiel skin incision was made using a scalpel and carried down through the underlying fascia. The fascia was incised in the midline and tented up using Richard clamps. On both the inferior and superior fascia side the rectus muscle was dissected off bluntly and sharply using Ceballos scissors. The peritoneum was identified and entered bluntly in the midline. This was then stretched laterally using manual strength. After entering the abdominal cavity and confirming lack of intraperitoneal adhesions, an extra large Fransisco retractor was placed and the lower uterine segment was visualized. A scalpel was utilized to make a low transverse uterine incision. The 's head was grasped and brought to the level of the incision. particulate mecounium was found. Fundal pressure was applied and infant was delivered without difficulty. Mouth and nares were suctioned with bulb suction. After the umbilical cord was clamped and cut, the infant was handed off to the pediatric staff. A sample of cord blood was then obtained. Cord gasses were sent. The placenta was delivered intact via uterine massage. The uterus was cleared of all clots and debris. The uterine incision was closed using 0 Vicryl in a running locked fashion. A second imbricated layer was placed using 0 Vicryl in a running fashion as well. The bilateral tubes and ovaries appeared normal. The abdominal gutters were cleared of all clots and debris. A final check of the u terine incision showed it to be hemostatic. The peritoneum was closed using 3-0 Vicryl in a running fashion. The fascia was closed with 0 PDS in a running fashion. The subcutaneous space was hemostatic, and irrigated. The subcutaneous space was closed with 0 Plain in several single interrupted stitches. The skin was then closed using 4-0 Monocryl in a running subcuticular fashion. The skin edges were reapproximated together and were hemostatic. A pressure dressing was applied. All sponge, lap and needle counts were correct at the end of the procedure per nursing. Vitals - Labs Vital Signs - I&O Vital Signs Date Time Temp Pulse Resp B/P (MAP) Pulse Ox O2 Delivery O2 Flow Rate FiO2 02/18/21 16:00 83 20 118/80 (93) Room Air 02/18/21 15:45 83 20 118/80 (93) Room Air 02/18/21 15:30 36.0 87 127/57 (80) Room Air 02/18/21 15:15 57 118/63 (81) Room Air 02/18/21 15:00 57 118/69 (85) Room Air 02/18/21 14:45 61 126/66 (86) Room Air 02/18/21 14:30 Room Air 02/18/21 14:15 36.4 61 125/64 (84) Room Air 02/18/21 14:00 60 109/56 (73) Room Air 02/18/21 13:45 Room Air 02/18/21 13:30 61 16 114/53 (73) Room Air 02/18/21 13:15 61 110/61 (77) Room Air 02/18/21 13:00 66 99/54 (69) Room Air 02/18/21 12:45 61 101/56 (71) Room Air 02/18/21 12:30 36.9 76 100/59 (73) Room Air 02/18/21 12:15 70 103/62 (76) Room Air 02/18/21 12:00 68 16 100/56 (71) Room Air 02/18/21 11:45 67 102/54 (70) Room Air 02/18/21 11:30 56 107/53 (71) Room Air 02/18/21 11:15 61 116/58 (77) 02/18/21 11:00 62 16 122/66 (84) 96 Room Air 02/18/21 10:45 55 129/58 (81) 97 02/18/21 10:36 73 113/59 (77) 02/18/21 10:33 59 16 117/56 (76) 02/18/21 10:30 61 119/57 (77) 99 02/18/21 10:28 60 119/60 (79) 02/18/21 10:26 36.5 68 134/59 (84) 97 02/18/21 10:22 56 107/57 (74) 99 02/18/21 10:20 67 108/58 (75) 02/18/21 10:16 81 110/62 (78) 100 Room Air 02/18/21 10:15 36.5 75 110/62 (78) 02/18/21 10:13 76 129/67 (87) 98 Room Air 02/18/21 10:06 68 127/65 (85) 02/18/21 10:02 80 127/62 (83) 100 02/18/21 10:00 02/18/21 09:59 73 130/64 (86) 100 02/18/21 09:55 77 16 130/64 (86) 100 02/18/21 09:52 72 110/68 (82) 99 02/18/21 09:45 02/18/21 09:45 67 123/64 (83) 99 Room Air 02/18/21 09:34 68 123/66 (85) 98 02/18/21 09:32 76 131/74 (93) 98 Room Air 02/18/21 09:30 69 132/70 (90) 100 Room Air 02/18/21 09:15 67 16 131/80 (97) 100 Room Air 02/18/21 09:00 80 121/80 (94) 100 Room Air 02/18/21 08:30 Room Air 02/18/21 08:00 Room Air 02/18/21 07:36 36.0 77 16 136/82 (100) 100 Room Air 02/18/21 07:30 Room Air 02/18/21 07:00 18 Room Air 02/18/21 06:00 18 Room Air 02/18/21 05:00 61 18 117/64 (81) Room Air 02/18/21 04:00 36.3 98 18 100 Room Air 02/18/21 04:00 72 18 111/66 (81) Room Air 02/18/21 03:00 80 18 116/63 (80) Room Air 02/18/21 02:00 83 18 132/76 (94) Room Air 02/18/21 01:00 85 18 129/83 (98) Room Air 02/18/21 00:00 Room Air 02/17/21 23:00 36.3 98 18 113/40 (64) 100 Room Air I & O 02/18/21 07:00 Intake Total 1000 ml Balance 1000 ml Labs Laboratory Tests 02/17/21 20:30: Urine Color YELLOW, Urine Clarity CLEAR, Urine pH 6.0, Urine Specific [place] 1.025H, Urine Protein 2+H, Urine Glucose (UA) NEGATIVE, Urine Ketones 1+H, Urine Nitrite NEGATIVE, Urine Bilirubin 1+H, Urine Urobilinogen 2.0, Urine Leukocyte Esterase NEGATIVE, Urine RBC (Auto) NEGATIVE, Urine RBC NONE, Urine WBC 0-2, Urine Crystals PRESENTH, Urine Calcium Oxalate Crystals FEWH, Urine Bacteria LARGEH, Urine Casts NONE, Urine Mucus SMALLH, Urine Culture Indicated YES 02/17/21 23:22: White Blood Count 14.3H, Red Blood Count 4.09, Hemoglobin 12.3, Hematocrit 37, Mean Corpuscular Volume 90, Mean Corpuscular Hemoglobin 30, Mean Corpuscular Hemoglobin Concent 34, Red Cell Distribution Width 13.9, Platelet Count 235, Mean Platelet Volume 9.8, Immature Granulocyte % (Auto) 0, Neutrophils (%) (Auto) 80H, Lymphocytes (%) (Auto) 12, Monocytes (%) (Auto) 6, Eosinophils (%) (Auto) 1, Basophils (%) (Auto) 0, Neutrophils # (Auto) 11.5H, Lymphocytes # (Auto) 1.7, Monocytes # (Auto) 0.8, Eosinophils # (Auto) 0.1, Basophils # (Auto) 0.1, Immature Granulocyte # (Auto) 0.1 Microbiology 02/17/21 Urine Culture - Preliminary, Resulted Slight Growth Present ALEXANDER CAMPBELL DO Feb 18, 2021 19:55
[2021-02-18] MEDS ORDERED: morphine INJ 10 MG/ML 1ML (SYR OR VIAL) IVP ONE (20:00)
[2021-02-18] MEDS ORDERED: PROMETHAZINE INJ 25 MG/ML (PHENERGAN) AMP IVP ONE (20:00)
[2021-02-18] MEDS ORDERED: HYDROmorphone 2 MG/ML VIAL (DILAUDID) IV ONE (20:00)
[2021-02-18] MEDS ORDERED: ONDANSETRON 4 MG/2 ML (SDV) Z0FRAN IVP PRN (20:00)
[2021-02-18] MEDS ORDERED: CATHETER FLUSH 10 ML SYR IV SCH (22:00)
[2021-02-18] MEDS: DOCUSATE SODIUM 100 MG (COLACE) CAP PO SCH (22:18)
[2021-02-18] MEDS: ACETAMINOPHEN 500 MG TAB (TYLENOL) PO SCH (22:19)
[2021-02-18] MEDS: ENOXAPARIN 40 MG/0.4 ML (LOVENOX) SYR SC SCH (23:35)
[2021-02-19 02:17] VITALS: BP 126/68
[2021-02-19] MEDS: KETOROLAC 30 MG/ML VIAL IV SCH ×3 (03:09→15:01)
[2021-02-19 05:56] LABS: BASOPHILS % (AUTO) 0 % (0-10); EOSINOPHILS # (AUTO) 0.1 10^3/uL (0.0-0.3); EOSINOPHILS % (AUTO) 0 % (0-10); HEMATOCRIT 28 % (35-52); HEMOGLOBIN 9.4 g/dL (11.5-16.0); LYMPHOCYTES # (AUTO) 1.8 10^3/uL (1.0-4.0); LYMPHOCYTES % (AUTO) 11 % (12-44); MEAN CORPUSCULAR HEMOGLOBIN 30 pg (25-34); MEAN CORPUSCULAR HGB CONC 34 g/dL (32-36); MEAN CORPUSCULAR VOLUME 90 fL (80-99); MEAN PLATELET VOLUME 9.8 fL (9.0-12.2); MONOCYTES # (AUTO) 1.1 10^3/uL (0.0-1.0); MONOCYTES % (AUTO) 6 % (0-12); NEUTROPHILS # (AUTO) 14.5 10^3/uL (1.8-7.8); NEUTROPHILS % (AUTO) 82 % (42-75); PLATELET COUNT 171 10^3/uL (130-400); WHITE BLOOD COUNT 17.5 10^3/uL (4.3-11.0)
[2021-02-19 06:17] VITALS: BP 125/57
[2021-02-19] MEDS: ACETAMINOPHEN 500 MG TAB (TYLENOL) PO SCH ×2 (06:18→22:31)
[2021-02-19 08:41] VITALS: BP 129/63
[2021-02-19] MEDS: FERROUS SULF 325 MG (IRON) TAB PO SCH (08:41)
[2021-02-19] MEDS: DOCUSATE SODIUM 100 MG (COLACE) CAP PO SCH ×2 (08:41→20:56)
--- NOTE | 2021-02-19 08:41 | Postpartum Progress Note ---
Post Op Post-operative Day #1 s/p PLTCS; arrest of dilitation, NRFHT, OP presentation Subjective: Patient is without complaints. Ambulating, voiding after hammonds removed. Tolerating a regular diet without nausea or vomiting. Normal lochia. Pain is well controlled with oral pain medications. Passing flatus. [] feeding. [] Objective: 02/18/21 02/19/21 02/19/21 22:16 02:17 06:17 Temp 36.6 36.6 36.3 Pulse 84 81 75 Resp 18 18 18 B/P (MAP) 125/58 (80) 126/68 (87) 125/57 (79) Pulse Ox 96 99 98 O2 Delivery Room Air Room Air Room Air 02/19/21 00:00 Intake Total 2400 ml Output Total 150 ml Balance 2250 ml Laboratory Tests Test 02/19/21 05:45 Range/Units White Blood Count 17.5 H 4.3-11.0 10^3/uL Red Blood Count 3.11 L 3.80-5.11 10^6/uL Hemoglobin 9.4 #L 11.5-16.0 g/dL Hematocrit 28 L 35-52 % Mean Corpuscular Volume 90 80-99 fL Mean Corpuscular Hemoglobin 30 25-34 pg Mean Corpuscular Hemoglobin Concent 34 32-36 g/dL Red Cell Distribution Width 13.9 10.0-14.5 % Platelet Count 171 130-400 10^3/uL Mean Platelet Volume 9.8 9.0-12.2 fL Immature Granulocyte % (Auto) 1 % Neutrophils (%) (Auto) 82 H 42-75 % Lymphocytes (%) (Auto) 11 L 12-44 % Monocytes (%) (Auto) 6 0-12 % Eosinophils (%) (Auto) 0 0-10 % Basophils (%) (Auto) 0 0-10 % Neutrophils # (Auto) 14.5 H 1.8-7.8 10^3/uL Lymphocytes # (Auto) 1.8 1.0-4.0 10^3/uL Monocytes # (Auto) 1.1 H 0.0-1.0 10^3/uL Eosinophils # (Auto) 0.1 0.0-0.3 10^3/uL Basophils # (Auto) 0.0 0.0-0.1 10^3/uL Immature Granulocyte # (Auto) 0.1 0.0-0.1 10^3/uL Physical Exam: General - Alert and oriented, no apparent distress Abdomen - Soft, appropriately tender to palpation, non-distended, fundus firm at umbilicus Incision - clean, dry and intact; no erythema or induration, no drainage Extremities - no edema, negative Maru's bilaterally Assessment: 1. post-operative day # 1, status post PLTCS. Recovering well, hemodynamically stable 2. Antepartum and Acute blood loss anemia Plan: Routine post-operative care. Encourage breast feeding. Encourage ambulation. VTE prophylaxis: SCDs. Ferrous sulfate supplementation. Plan for discharge tomorrow Vitals - Labs Vital Signs - I&O Vital Signs Date Time Temp Pulse Resp B/P (MAP) Pulse Ox O2 Delivery O2 Flow Rate FiO2 02/19/21 06:17 36.3 75 18 125/57 (79) 98 Room Air 02/19/21 02:17 36.6 81 18 126/68 (87) 99 Room Air 02/18/21 22:16 36.6 84 18 125/58 (80) 96 Room Air 02/18/21 20:30 Room Air 02/18/21 20:30 36.5 18 108/54 (72) 99 Room Air 02/18/21 20:15 36.5 18 116/57 (76) 100 Room Air 02/18/21 20:15 Room Air 02/18/21 20:00 Room Air 02/18/21 20:00 36.4 18 121/63 (82) 100 Room Air 02/18/21 19:45 36.5 18 106/73 (84) 98 Room Air 02/18/21 19:45 Room Air 02/18/21 18:00 36.2 103 149/81 (103) 100 Room Air 02/18/21 17:45 104 139/78 (98) 100 Room Air 02/18/21 17:30 88 20 133/73 (93) 96 Room Air 02/18/21 17:15 36.7 103 141/82 (101) 99 Room Air 02/18/21 17:00 Room Air 02/18/21 16:45 69 135/88 (104) Room Air 02/18/21 16:30 55 145/71 (95) Room Air 02/18/21 16:15 57 121/67 (85) Room Air 02/18/21 16:00 83 20 118/80 (93) Room Air 02/18/21 15:45 83 20 118/80 (93) Room Air 02/18/21 15:30 36.0 87 127/57 (80) Room Air 02/18/21 15:15 57 118/63 (81) Room Air 02/18/21 15:00 57 118/69 (85) Room Air 02/18/21 14:45 61 126/66 (86) Room Air 02/18/21 14:30 Room Air 02/18/21 14:15 36.4 61 125/64 (84) Room Air 02/18/21 14:00 60 109/56 (73) Room Air 02/18/21 13:45 Room Air 02/18/21 13:30 61 16 114/53 (73) Room Air 02/18/21 13:15 61 110/61 (77) Room Air 02/18/21 13:00 66 99/54 (69) Room Air 02/18/21 12:45 61 101/56 (71) Room Air 02/18/21 12:30 36.9 76 100/59 (73) Room Air 02/18/21 12:15 70 103/62 (76) Room Air 02/18/21 12:00 68 16 100/56 (71) Room Air 02/18/21 11:45 67 102/54 (70) Room Air 02/18/21 11:30 56 107/53 (71) Room Air 02/18/21 11:15 61 116/58 (77) 02/18/21 11:00 62 16 122/66 (84) 96 Room Air 02/18/21 10:45 55 129/58 (81) 97 02/18/21 10:36 73 113/59 (77) 02/18/21 10:33 59 16 117/56 (76) 02/18/21 10:30 61 119/57 (77) 99 02/18/21 10:28 60 119/60 (79) 02/18/21 10:26 36.5 68 134/59 (84) 97 02/18/21 10:22 56 107/57 (74) 99 02/18/21 10:20 67 108/58 (75) 02/18/21 10:16 81 110/62 (78) 100 Room Air 02/18/21 10:15 36.5 75 110/62 (78) 02/18/21 10:13 76 129/67 (87) 98 Room Air 02/18/21 10:06 68 127/65 (85) 02/18/21 10:02 80 127/62 (83) 100 02/18/21 10:00 02/18/21 09:59 73 130/64 (86) 100 02/18/21 09:55 77 16 130/64 (86) 100 02/18/21 09:52 72 110/68 (82) 99 02/18/21 09:45 02/18/21 09:45 67 123/64 (83) 99 Room Air 02/18/21 09:34 68 123/66 (85) 98 02/18/21 09:32 76 131/74 (93) 98 Room Air 02/18/21 09:30 69 132/70 (90) 100 Room Air 02/18/21 09:15 67 16 131/80 (97) 100 Room Air 02/18/21 09:00 80 121/80 (94) 100 Room Air I & O 02/19/21 07:00 Intake Total 4900 ml Output Total 600 ml Balance 4300 ml Labs Laboratory Tests 02/19/21 05:45: White Blood Count 17.5H, Red Blood Count 3.11L, Hemoglobin 9.4#L, Hematocrit 28L , Mean Corpuscular Volume 90, Mean Corpuscular Hemoglobin 30, Mean Corpuscular Hemoglobin Concent 34, Red Cell Distribution Width 13.9, Platelet Count 171, Mean Platelet Volume 9.8, Immature Granulocyte % (Auto) 1, Neutrophils (%) (Auto) 82H, Lymphocytes (%) (Auto) 11L, Monocytes (%) (Auto) 6, Eosinophils (%) (Auto) 0, Basophils (%) (Auto) 0, Neutrophils # (Auto) 14.5H, Lymphocytes # (Auto) 1.8, Monocytes # (Auto) 1.1H, Eosinophils # (Auto) 0.1, Basophils # (Auto) 0.0, Immature Granulocyte # (Auto) 0.1 Microbiology 02/17/21 Urine Culture - Preliminary, Resulted Slight Growth Present ALEXANDER CAMPBELL DO Feb 19, 2021 08:41
--- NOTE | 2021-02-19 10:48 | Anesthesia-Regional Post-Op ---
Regional Patient Condition Mental Status: Alert, Oriented x3 Circulation: Same as Pre-Op Headache: Absent Sensation: Full Recovery Motor Block: Absent Post Op Complications Complications None Follow Up Care/Instructions Patient Instructions None needed. Anesthesia/Patient Condition Patient is doing well, no complaints, stable vital signs, no apparent adverse anesthesia problems. No complications reported per nursing. PAM RIVAS CRNA Feb 19, 2021 10:48
[2021-02-19 14:00] VITALS: BP 108/73
[2021-02-19] MEDS: ACETAMINOPHEN 500 MG TAB (TYLENOL) PO PRN (14:03)
[2021-02-19] MEDS: IBUPROFEN 600 MG (MOTRIN) TAB PO SCH ×2 (15:31→20:56)
[2021-02-19] MEDS ORDERED: IBUPROFEN 600 MG (MOTRIN) TAB PO SCH (19:45)
[2021-02-19 21:00] VITALS: BP 130/61
[2021-02-19] MEDS: ENOXAPARIN 40 MG/0.4 ML (LOVENOX) SYR SC SCH (22:31)
[2021-02-20 03:35] VITALS: BP 124/56
[2021-02-20] MEDS: IBUPROFEN 600 MG (MOTRIN) TAB PO SCH ×2 (03:38→08:19)
[2021-02-20] MEDS: ACETAMINOPHEN 500 MG TAB (TYLENOL) PO SCH (06:04)
[2021-02-20] MEDS: DOCUSATE SODIUM 100 MG (COLACE) CAP PO SCH (08:19)
[2021-02-20] MEDS: FERROUS SULF 325 MG (IRON) TAB PO SCH (08:19)
[2021-02-20 08:20] VITALS: BP 128/57
[2021-02-20] MEDS ORDERED: OXC5T PO (09:12)
[2021-02-20] MEDS ORDERED: ENOX40DI8 SC (09:12)
[2021-02-20] MEDS ORDERED: DCS100C PO (09:12)
[2021-02-20] MEDS ORDERED: ACET-93 PO (09:12)
[2021-02-20] MEDS ORDERED: IBUP-844 PO (09:12)
[2021-02-20] MEDS ORDERED: FERR325T24 PO (09:12)
--- NOTE | 2021-02-20 09:13 | Discharge Summary ---
Discharge Summary Hospital Course Problems Reviewed?: Yes Hospital Course Date of Admission: Feb 17, 2021 at 20:21 Admission Diagnosis : Family Physician/Provider: Alexander Campbell DO Date of Discharge: 02/20/21 Discharge Diagnosis: [ ] Hospital Course: [ ] Labs and Pending Lab Test: Microbiology 02/17/21 Urine Culture - Preliminary, Resulted Slight Growth Present Home Meds Active Cephalexin 500 Mg Tablet 500 Mg PO QID 7 Days Reported Gummies (Okj525/FA/Omega3/Dha/Fish Oil) 1 Each Tab.chew 1 Each PO DAILY Activity: Activity as Tolerated Driving Instructions: No Driving for 1 Week NO SMOKING: NO SMOKING Nothing Inside Vagina: No Douching, No [place], No Tampons Discharge Diet: No Restrictions Symptoms to Report to : Swelling Increased, Bleeding Excessive, Pain Increased, Fever Over 101 Degrees F, Vaginal Bleeding Increase, Cramps in Feet or Legs, Vaginal Discharge Foul For Any Problems or Questions: Contact Your Physician Infection Signs and Symptoms: Increased Redness, Foul Odor of Wound, Increased Drainage, Skin Itchy or Has a Rash, Increased Swelling, Temperature Above 101 F Operative Area Clean and Dry: Keep Incision Clean/Dry Stitches/Means/Dermabond: Dermabond Bathing Instructions: Shower Discharge Physical Examination Allergies: Coded Allergies: strawberry (Unverified Allergy, Mild, 02/15/21) latex (Verified Allergy, Unknown, RASH, 02/15/21) Vitals & I&Os Vital Signs Date Time Temp Pulse Resp B/P (MAP) Pulse Ox O2 Delivery O2 Flow Rate FiO2 02/20/21 03:35 36.7 92 16 124/56 (78) 100 Room Air General Appearance: No Apparent Distress Cardiovascular: Regular Rate, Rhythm Gastrointestinal: Normal Bowel Sounds, Other (INc c/d/i) Extremity: No Calf Tenderness, No Pedal Edema Discharge Summary Date of Admission Feb 17, 2021 at 20:21 Date of Discharge ALEXANDER CAMPBELL DO Feb 20, 2021 09:13
== END 2021-02-20 11:15 | disposition home or self-care (01) | DRG 788 ==
LOC: EEVIPCON 20:21 → LDRP 20:21
PROVIDERS: ADMIT Obstetrics & Gynecology; ATTEND Obstetrics & Gynecology
PROC: 10D00Z1 Extraction of Products of Conception, Low, Open Approach (ICD-10-PCS; principal; 2021-02-18 18:21)
DX: O99.214 Obesity complicating childbirth (principal); E66.01 Morbid (severe) obesity due to excess calories; Z3A.38 38 weeks gestation of pregnancy; Z37.0 Single live birth
CPT/HCPCS: 36415; 81000; 85025; 86850; 86900; 86901; 87088

== ENCOUNTER → 2021-08-12 | Outpatient (CLI) | payer MEDICAID ==
[~2021-08-12] MED LIST changes: +ACET-93 PO; +DOCU-239 PO; +ENOX40DI8 SC; +FERR325T24 PO; +IBUP-844 PO; +OXC5T PO; -SULF1TAB35 PO; +SULF1TAB38 PO
--- NOTE | 2021-08-12 12:07 | Diagnostic Imaging Report ---
CLINICAL INDICATION: Patient with migraine. EXAM: Axial CT scan of the brain without IV contrast with coronal and sagittal reformatted images. Auto Exposure Controls were utilized during the CT exam to meet ALARA standards for radiation dose reduction. COMPARISON: None. FINDINGS: There is no evidence of acute cerebral infarct, intracranial hemorrhage, or gross mass effect. The brain parenchymal volume appears appropriate for patient's age. There is normal coleman-white matter distinction. There is no significant midline shift or herniation. There is no evidence of hydrocephalus. The basal cisterns are unremarkable. The skull, extracranial soft tissue, and orbits are unremarkable. The paranasal sinuses are unremarkable. Temporal bones show no significant abnormality. IMPRESSION: Unremarkable CT scan of the brain. Dictated by: Dictated on workstation # [id number]
== END ==
LOC: RAD FS 11:32
PROVIDERS: ATTEND Registered Nurse Emergency
DX: G43.909 Migraine, unspecified, not intractable, without status migrainosus (principal)
CPT/HCPCS: 70450

== ENCOUNTER 2023-07-08 22:25 | Emergency (ER) | payer OTHER, MEDICAID ==
[~2023-07-08] VITALS: Ht 167.7 cm; Wt 154.2 kg
[2023-07-08 22:42] LABS: BASOPHILS # (AUTO) 0.1 10^3/uL (0.0-0.1); BASOPHILS % (AUTO) 1 % (0-10); EOSINOPHILS # (AUTO) 0.2 10^3/uL (0.0-0.3); EOSINOPHILS % (AUTO) 4 % (0-10); HEMATOCRIT 39 % (35-52); HEMOGLOBIN 13.1 g/dL (11.5-16.0); LYMPHOCYTES # (AUTO) 1.8 10^3/uL (1.0-4.0); LYMPHOCYTES % (AUTO) 27 % (12-44); MEAN CORPUSCULAR HEMOGLOBIN 30 pg (25-34); MEAN CORPUSCULAR HGB CONC 34 g/dL (32-36); MEAN CORPUSCULAR VOLUME 87 fL (80-99); MEAN PLATELET VOLUME 9.1 fL (9.0-12.2); MONOCYTES # (AUTO) 0.5 10^3/uL (0.0-1.0); MONOCYTES % (AUTO) 8 % (0-12); NEUTROPHILS # (AUTO) 4.1 10^3/uL (1.8-7.8); NEUTROPHILS % (AUTO) 62 % (42-75); PLATELET COUNT 228 10^3/uL (130-400); WHITE BLOOD COUNT 6.7 10^3/uL (4.3-11.0)
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
[2023-07-08 23:06] LABS: CHLORIDE 107 MMOL/L (98-107); POTASSIUM 3.7 MMOL/L (3.6-5.0); SODIUM 141 MMOL/L (135-145)
[2023-07-08 23:07] LABS: ALANINE AMINOTRANSFERASE 15 U/L (0-55); ALKALINE PHOSPHATASE 59 U/L (40-136); BILIRUBIN,TOTAL 1.3 MG/DL (0.1-1.0); BUN/CREATININE RATIO 18; CALCIUM 8.8 MG/DL (8.5-10.1); CARBON DIOXIDE 24 MMOL/L (21-32); CREATININE SERUM 0.49 MG/DL (0.60-1.30); GFR ESTIMATED 134; GLUCOSE 101 MG/DL (70-105)
[2023-07-08 23:12] LABS: BILIRUBIN,URINE NEGATIVE (NEGATIVE); CLARITY,URINE SL CLOUDY; COLOR,URINE YELLOW; GLUCOSE, URINE (UA) NEGATIVE (NEGATIVE); KETONES,URINE NEGATIVE (NEGATIVE); LEUKOCYTE ESTERASE ,URINE NEGATIVE (NEGATIVE); NITRITE,URINE NEGATIVE (NEGATIVE); PROTEIN,URINE 2+ (NEGATIVE)
[2023-07-08 23:22] LABS: AMORPHOUS SEDIMENT,UR FEW AMOR URATES /LPF; BACTERIA,URINE MODERATE /HPF; WBC,URINE 0-2 /HPF
[2023-07-08 23:24] LABS: AMPHETAMINE SCREEN, URINE NEGATIVE (NEGATIVE); BARBITURATE SCREEN URINE NEGATIVE (NEGATIVE); CANNABINOID SCREEN, URINE NEGATIVE (NEGATIVE); COCAINE SCREEN URINE NEGATIVE (NEGATIVE); METHADONE STAT NEGATIVE (NEGATIVE); OPIATE SCREEN URINE NEGATIVE (NEGATIVE); OXYCODONE STAT NEGATIVE (NEGATIVE); TRICYCLIC ANTIDEPRESSANTS SCRE NEGATIVE (NEGATIVE)
[2023-07-09 01:14] VITALS: BP 126/74
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
== END 2023-07-09 01:15 | disposition home or self-care (01) ==
LOC: EDUNIT# 22:27 → ER FS 22:28
DX: M62.830 Muscle spasm of back (principal); E66.9 Obesity, unspecified; Z68.43 Body mass index [BMI] 50.0-59.9, adult; Z91.040 Latex allergy status; V89.2XXA Person injured in unspecified motor-vehicle accident, traffic, initial encounter; W22.8XXA Striking against or struck by other objects, initial encounter; Y92.410 Unspecified street and highway as the place of occurrence of the external cause
CPT/HCPCS: 36415; 70450; 72125; 72128; 72131; 80053; 80306; 81000; 85025; 99284; G0480; 80320